=== PATIENT | female | born 1980 | race American Indian/Alaskan Native ===

== ENCOUNTER 2017-07-24 20:09 | Outpatient (CLI) | payer OTHER ==
[2017-07-24] MEDS ORDERED: LACTATED RINGERS 500 ML IV ONE (21:49)
[2017-07-24 22:25] LABS: Basophils % (Auto) 0.3 % (0.0-1.8); Eosinophils % (Auto) 1.1 % (0.0-4.3); Hematocrit 26.8 % (30.3-42.9); Hemoglobin 8.3 gm/dl (10.1-14.3); Mean Corpuscular HGB Conc 31 % (30-34); Platelet Count 271 K/mm3 (140-440); Red Blood Count 4.73 M/mm3 (3.65-5.03); Red Cell Distribution Width 19.1 % (13.2-15.2); White Blood Count 7.7 K/mm3 (4.5-11.0)
[2017-07-24 22:29] LABS: Alanine Aminotransferase 14 units/L (7-56); Albumin 3.2 g/dL (3.9-5); Albumin/Globulin Ratio 0.9 %; Alkaline Phosphatase 110 units/L (35-129); Anion Gap 18 mmol/L; BUN/Creatinine Ratio 6; Blood Urea Nitrogen 3 mg/dL (7-17); Calcium 8.9 mg/dL (8.4-10.2); Carbon Dioxide 22 mmol/L (22-30); Chloride 98.4 mmol/L (98-107); Glucose 95 mg/dL (65-100); Potassium 3.9 mmol/L (3.6-5.0); Sodium 134 mmol/L (137-145); Total Protein 6.6 g/dL (6.3-8.2)
[2017-07-24 22:31] LABS: Bacteria,Urine 4+ /HPF (Negative); Bilirubin,Urine NEG (Negative); Blood,Urine NEG (Negative); Ketones,Urine NEG (Negative); Leukocyte Esterase,Urine NEG (Negative); Mucus,Urine FEW /HPF; Nitrite,Urine NEG (Negative); Protein,Urine <15 mg/dL mg/dL (Negative); Urobilinogen,Urine < 2.0 mg/dL (<2.0)
[2017-07-24 22:32] LABS: Mean Corpuscular Hemoglobin 18 pg (28-32); Mean Corpuscular Volume 57 fl (79-97)
[2017-07-24 23:42] VITALS: BP 147/89
== END 2017-07-25 00:04 | disposition swing bed (61) ==
LOC: TRG 20:09
PROVIDERS: ATTEND Obstetrics & Gynecology
DX: O26.893 Other specified pregnancy related conditions, third trimester (principal); R94.31 Abnormal electrocardiogram [ECG] [EKG]; O47.03 False labor before 37 completed weeks of gestation, third trimester; Z3A.30 30 weeks gestation of pregnancy
CPT/HCPCS: 36415; 59025; 80053; 81001; 85025; 93005; 93010; J7120

== ENCOUNTER 2017-07-25 00:08 | Emergency (ER) | payer OTHER ==
[2017-07-25 02:43] LABS: Basophils % (Auto) 0.3 % (0.0-1.8); Eosinophils % (Auto) 1.2 % (0.0-4.3); Hematocrit 26.9 % (30.3-42.9); Hemoglobin 8.4 gm/dl (10.1-14.3); Mean Corpuscular HGB Conc 31 % (30-34); Platelet Count 244 K/mm3 (140-440); Red Blood Count 4.68 M/mm3 (3.65-5.03); Red Cell Distribution Width 18.8 % (13.2-15.2); White Blood Count 8.4 K/mm3 (4.5-11.0)
[2017-07-25 02:45] LABS: Mean Corpuscular Hemoglobin 18 pg (28-32); Mean Corpuscular Volume 58 fl (79-97)
[2017-07-25 02:56] LABS: Anion Gap 18 mmol/L; BUN/Creatinine Ratio 6; Blood Urea Nitrogen 3 mg/dL (7-17); Calcium 8.9 mg/dL (8.4-10.2); Carbon Dioxide 22 mmol/L (22-30); Chloride 97.5 mmol/L (98-107); Glucose 110 mg/dL (65-100); Potassium 3.7 mmol/L (3.6-5.0); Sodium 134 mmol/L (137-145)
[2017-07-25 03:58] VITALS: BP 191/103
[2017-07-25] MEDS ORDERED: NACL 0.9% 1000 ML 1,000 ML IV ONE (04:03)
[2017-07-25] MEDS ORDERED: APRESOLINE IV ONE (04:03)
[2017-07-25 06:32] LABS: Alanine Aminotransferase 13 units/L (7-56); Albumin 3.2 g/dL (3.9-5); Alkaline Phosphatase 107 units/L (35-129); Total Protein 6.5 g/dL (6.3-8.2)
[2017-07-25 06:49] LABS: Bilirubin,Direct < 0.2 mg/dL (0-0.2); Bilirubin,Indirect 0.3 mg/dL
== END 2017-07-25 04:15 | disposition left against medical advice (07) ==
LOC: ED 00:08
DX: R07.9 Chest pain, unspecified (principal); Z53.21 Procedure and treatment not carried out due to patient leaving prior to being seen by health care provider
CPT/HCPCS: 36415; 80048; 80074; 84484; 85025

== ENCOUNTER 2017-08-08 17:33 | Outpatient (CLI) | payer OTHER ==
[2017-08-08] MEDS ORDERED: LACTATED RINGERS 500 ML IV ONE (19:14)
[2017-08-08 19:30] LABS: Bacteria,Urine 1+ /HPF (Negative); Bilirubin,Urine NEG (Negative); Blood,Urine NEG (Negative); Ketones,Urine TR mg/dL (Negative); Leukocyte Esterase,Urine SM (Negative); Mucus,Urine FEW /HPF; Nitrite,Urine NEG (Negative)
[2017-08-08 20:52] VITALS: BP 136/89
== END 2017-08-08 22:52 | disposition home or self-care (01) ==
LOC: TRG 17:33
PROVIDERS: ATTEND Obstetrics & Gynecology Gynecology
DX: O47.03 False labor before 37 completed weeks of gestation, third trimester (principal); Z3A.32 32 weeks gestation of pregnancy
CPT/HCPCS: 59025; 81001

== ENCOUNTER 2018-09-22 13:19 | Inpatient (IN) | payer OTHER ==
[2018-09-22] MEDS ORDERED: LACTATED RINGERS 500 ML IV ONE (13:38)
[2018-09-22 14:39] LABS: Bacteria,Urine 1+ /HPF (Negative); Bilirubin,Urine NEG (Negative); Blood,Urine NEG (Negative); Color,Urine Yellow (Yellow)
[2018-09-22 14:54] LABS: Hematocrit 27.7 % (30.3-42.9); Hemoglobin 8.8 gm/dl (10.1-14.3); Mean Corpuscular HGB Conc 32 % (30-34); Platelet Count 222 K/mm3 (140-440); Red Blood Count 4.85 M/mm3 (3.65-5.03); Red Cell Distribution Width 19.8 % (13.2-15.2)
[2018-09-22 15:17] LABS: Alanine Aminotransferase 10 units/L (7-56); Uric Acid 5.1 mg/dL (3.5-7.6)
[2018-09-22 15:21] LABS: Mean Corpuscular Volume 57 fl (79-97)
--- NOTE | 2018-09-22 19:15 | History and Physical Report ---
History of Present Illness Date of examination: 09/22/18 Chief complaint: Elevated BP's History of present illness: Pt is a 38yo BF EDC 11/07/18; EGA 33 3/7 weeks sent to [facility] for evaluation of elevated BP's - 178/120. This was her 1st visit at [facility]. She has Chronic hypertension, but has been non-compliant with her visits and her BP meds which are Procardia 30mg BID and Labetolol 100mg BID. records are available. Past History Past Medical History: hypertension Social history: no significant social history, - Obstetrical History Expected Date of Delivery: 11/07/18 Actual Gestation: 33 Week(s) 4 Day(s) : 9 (Per patient) Medications and Allergies Allergies Allergy/AdvReac Type Severity Reaction Status Date / Time No Known Allergies Allergy Verified 09/22/18 13:33 Home Medications Medication Instructions Recorded Confirmed Last Taken Type NIFEdipine XL [Procardia Xl] 60 mg PO BID 08/27/17 08/27/17 08/26/17 10:00 History 60 MG HYDROcodone/APAP 5-325 [Lena 1 each PO Q6HR PRN #7 tablet 09/01/17 Unknown Rx 5/325] Ibuprofen [Motrin 600 MG tab] 600 mg PO Q8H PRN #30 tablet 09/01/17 Unknown Rx Multivitamin with Iron 1 each PO DAILY #30 tablet 09/01/17 Unknown Rx [Multivitamins with Iron] Review of Systems All systems: negative - Vital Signs Vital signs: Vital Signs Pulse BP 127 H 134/87 09/22/18 14:03 09/22/18 14:03 Temp Pulse Resp BP Pulse Ox 99.4 F 100 H 20 141/100 09/22/18 14:07 09/22/18 17:42 09/22/18 14:07 09/22/18 17:42 - Physical Exam Cardiovascular: Regular rate Lungs: Positive: Clear to auscultation Abdomen: Positive: normal appearance Genitourinary (Female): Positive: normal external genitalia Uterus: Positive: enlarged Extremities: Positive: normal - Obstetrical FHR: category 1 Uterine Contraction Monitor Mode: External Uterine Contraction Pattern: Absent Results Result Diagrams: 09/22/18 14:35 09/22/18 14:35 Abnormal lab results 09/22/18 09/22/18 Range/Units 14:35 14:35 Hgb 8.8 L (10.1-14.3) gm/dl Hct 27.7 L (30.3-42.9) % MCV 57 L (79-97) fl MCH 18 L (28-32) pg RDW 19.8 H (13.2-15.2) % Creatinine 0.6 L (0.7-1.2) mg/dL Lactate Dehydrogenase 250 H (91-180) units/L All other labs normal. Ultrasound: report reviewed (BPP 8/; DAO 18.6) Assessment and Plan - Patient Problems (1) 33 weeks gestation of Onset Date: 09/22/18 Current Visit: Yes Status: Acute Plan to address problem: A: IUP @ 33 3/7 weeks Chronic hypertension - uncontrolled Non-compliant Grandmultiparous P: Admit to L&D for Observation Obtain PIH labs, 24hr urine for protein Monitor BP's with IV Hydralazine as needed APA consultation (2) AMA (advanced maternal age) multigravida 35+ Onset Date: 08/28/17 Current Visit: No Status: Acute Qualifiers: Trimester: third trimester Qualified Code(s): O09.523 - Supervision of elderly multigravida, third trimester (3) Grand multipara Onset Date: 09/22/18 Current Visit: No Status: Acute (4) Hypertension affecting in third trimester Onset Date: 08/28/17 Current Visit: No Status: Acute
[2018-09-22] MEDS ORDERED: APRESOLINE IV PRN (19:18)
[2018-09-22] MEDS ORDERED: TYLENOL PO PRN (19:18)
[2018-09-22] MEDS ORDERED: ZOFRAN IV PRN (19:18)
[2018-09-22] MEDS ORDERED: COLACE PO PRN (19:18)
--- NOTE | 2018-09-22 19:51 | Ultrasound Report ---
FINAL REPORT PROCEDURE: US OB LIMITED TECHNIQUE: Real-time limited sonographic examination was performed for evaluation of size, pos ition, heartbeat, fluid volume for each fetus with image documentation (1 or more fetuses). CPT 7681 5 HISTORY: Check amparo COMPARISON: No prior studies are available for comparison. FINDINGS: FETUS IUP: Single living intrauterine . Position: Cephalic. Amniotic fluid volume: Amniotic fluid index measures 18.6 centimeters Heart rate and rhythm: 140 BPM, Regular . IMPRESSION: Amniotic fluid index measures 18.6 centimeters
--- NOTE | 2018-09-22 19:53 | Ultrasound Report ---
FINAL REPORT PROCEDURE: US OB BPP WO NON-STRESS TECHNIQUE: Sonographic evaluation for breathing, movement, tone, and amniotic flui d volume was performed. CPT 87960 HISTORY: bpp COMPARISON: No prior studies are available for comparison. FINDINGS: Amniotic fluid volume: Normal-score 2. At least one vertical pocket >2 cm or more in vertical axis . breathing: Normal-score 2. movement: Normal-score 2. tone: Normal. Score: 8 of 8. IMPRESSION: Normal biophysical profile score.
[2018-09-22] MEDS ORDERED: LACTATED RINGERS 1,000 ML IV SCH (20:00)
[2018-09-22] MEDS: DECADRON IM SCH (21:25)
[2018-09-22] MEDS: NORMODYNE PO SCH (21:26)
[2018-09-22] MEDS: PROCARDIA XL PO SCH (22:00)
[2018-09-23] MEDS: NORMODYNE PO SCH ×2 (09:48→21:54)
[2018-09-23] MEDS: PRENATAL VITAMIN PO SCH (09:49)
[2018-09-23] MEDS: PROCARDIA XL PO SCH ×2 (09:49→21:55)
[2018-09-23] MEDS: DECADRON IM SCH ×2 (09:49→21:54)
[2018-09-23] MEDS: PEPCID PO SCH ×2 (10:03→21:55)
--- NOTE | 2018-09-23 12:55 | Progress Note ---
Assessment and Plan - Patient Problems (1) 33 weeks gestation of Onset Date: 09/22/18 Current Visit: Yes Status: Acute Plan to address problem: A: IUP @ 33 4/7 weeks Chronic hypertension - uncontrolled Non-compliant Grandmultiparous P: Continue present management for Observation Awaiting 24hr urine for protein - pending Monitor BP's with IV Hydralazine as needed Awaiting APA consultation (2) AMA (advanced maternal age) multigravida 35+ Onset Date: 08/28/17 Current Visit: No Status: Acute Qualifiers: Trimester: third trimester Qualified Code(s): O09.523 - Supervision of elderly multigravida, third trimester (3) Grand multipara Onset Date: 09/22/18 Current Visit: No Status: Acute (4) Hypertension affecting in third trimester Onset Date: 08/28/17 Current Visit: No Status: Acute Subjective - Subjective Date of service: 09/23/18 Principal diagnosis: IUP @ 33 4/7 weeks; Chronic hypertension Interval history: Pt is a 38yo BF EDC 11/07/18; EGA 33 4/7 weeks sent to [facility] for evaluation of elevated BP's - 178/120. This was her 1st visit at [facility]. She has Chronic hypertension, but has been non-compliant with her visits and her BP meds which are Procardia 30mg BID and Labetolol 100mg BID. records are available. Today she is feeling well without complaints. She denies headaches or blurred vision. Patient reports: movement normal, no new complaints, no loss of fluid, no vaginal bleeding, no contractions Objective - Vital Signs Vital Signs: Vital Signs - 12hr 09/23/18 09/23/18 09/23/18 01:44 07:07 07:11 Pulse Rate 100 H 104 H 103 H Blood Pressure 143/74 164/88 149/86 09/23/18 09/23/18 09/23/18 09:45 10:23 10:39 Pulse Rate 133 H 109 H 109 H Blood Pressure 124/64 135/72 163/95 09/23/18 09/23/18 09/23/18 10:53 11:08 11:23 Pulse Rate 101 H 100 H 101 H Blood Pressure 152/89 152/89 140/70 09/23/18 09/23/18 09/23/18 11:38 11:53 12:08 Pulse Rate 101 H 107 H 100 H Blood Pressure 139/67 143/70 154/92 09/23/18 09/23/18 12:24 12:38 Pulse Rate 103 H 103 H Blood Pressure 124/64 130/68 - Exam Abdomen: Present: normal appearance, soft Uterus: Present: normal FHR: category 1 Uterine Contraction Monitor Mode: External Uterine Contraction Pattern: Absent - Labs Labs: Abnormal Labs 09/22/18 09/22/18 14:35 14:35 Hgb 8.8 L Hct 27.7 L MCV 57 L MCH 18 L RDW 19.8 H Creatinine 0.6 L Lactate Dehydrogenase 250 H Laboratory Results - last 24 hr 09/22/18 09/22/18 09/22/18 14:15 14:35 14:35 WBC 6.7 RBC 4.85 Hgb 8.8 L Hct 27.7 L MCV 57 L MCH 18 L MCHC 32 RDW 19.8 H Plt Count 222 Creatinine 0.6 L Estimated GFR > 60 Uric Acid 5.1 AST 17 ALT 10 Lactate Dehydrogenase 250 H Urine Color Yellow Urine Turbidity Clear Urine pH 6.0 Ur Specific [place] 1.012 Urine Protein 100 mg/dl Urine Glucose (UA) Neg Urine Ketones Tr Urine Blood Neg Urine Nitrite Neg Urine Bilirubin Neg Urine Urobilinogen 2.0 Ur Leukocyte Esterase Neg Urine WBC (Auto) 2.0 Urine RBC (Auto) 1.0 U Epithel Cells (Auto) 2.0 Urine Bacteria (Auto) 1+
--- NOTE | 2018-09-23 14:10 | Consultation ---
History of Present Illness Consult date: 09/23/18 Requesting physician: JULIETA BEATTY Reason for consult: gestational hypertension History of present illness: Thank you for your referral of this patient. As you are aware, she is a 38 year old para [id number] with a history of chronic hypertension who presented to [facility] with elevated blood pressure. Patient has been noncompliant with blood pressure medication. Her BP at the time of admission was 178/120. MEDICAITONS PRIOR TO ADMISSION: Procardia 30mg BID Labetolol 100mg BID. She denies headaches or blurred vision. PAST OB HISTORY: x 6 (SEE REPORT IN PATIENTS CHART) At the time of admission this patient had mild headache at which time she ind icates have decreased. PIH Labs WNL Current blood pressure: 128/74 [facility] Ultrasonography See reports in patients chart Available Admission Labs: 24 Hour Urine at Pending. No serological evidence of HELLP Past History Past Medical History: hypertension - Obstetrical History : 9 (Per patient) Medications and Allergies Allergies Allergy/AdvReac Type Severity Reaction Status Date / Time No Known Allergies Allergy Verified 09/22/18 13:33 Home Medications Medication Instructions Recorded Confirmed Last Taken Type NIFEdipine XL [Procardia Xl] 60 mg PO BID 08/27/17 08/27/17 08/26/17 10:00 History 60 MG HYDROcodone/APAP 5-325 [Artie 1 each PO Q6HR PRN #7 tablet 09/01/17 Unknown Rx 5/325] Ibuprofen [Motrin 600 MG tab] 600 mg PO Q8H PRN #30 tablet 09/01/17 Unknown Rx Multivitamin with Iron 1 each PO DAILY #30 tablet 09/01/17 Unknown Rx [Multivitamins with Iron] Active Meds: Active Medications Acetaminophen (Tylenol) 650 mg PO Q4H PRN PRN Reason: Pain MILD(1-3)/Fever >100.5/GONZALES Dexamethasone (Decadron) 6 mg IM Q12HR [facility] Stop: 09/24/18 10:01 Last Admin: 09/23/18 09:49 Dose: 6 mg Documented by: Docusate Sodium (Colace) 100 mg PO Q12H PRN PRN Reason: Constipation Famotidine (Pepcid) 20 mg PO BID [facility] Last Admin: 09/23/18 10:03 Dose: 20 mg Documented by: Hydralazine HCl (Apresoline) 10 mg IV Q30MIN PRN PRN Reason: Blood Pressure Lactated Ringer's (Lactated Ringers) 1,000 mls @ 125 mls/hr IV DIRECT [facility] Labetalol HCl (Normodyne) 200 mg PO BID [facility] Last Admin: 09/23/18 09:48 Dose: 200 mg Documented by: Multivitamins/Iron/Calcium ( Vitamin) 1 each PO QDAY [facility] Last Admin: 09/23/18 09:49 Dose: 1 each Documented by: Nifedipine (Procardia Xl) 30 mg PO Q12HR [facility] Last Admin: 09/23/18 09:49 Dose: 30 mg Documented by: Ondansetron HCl (Zofran) 4 mg IV Q6H PRN PRN Reason: Nausea And Vomiting - Vital Signs Vital signs: Vital Signs Pulse BP 127 H 134/87 09/22/18 14:03 09/22/18 14:03 Temp Pulse Resp BP Pulse Ox 98.6 F 105 H 20 130/64 09/22/18 21:01 09/23/18 13:08 09/22/18 14:07 09/23/18 13:08 Results Result Diagrams: 09/22/18 14:35 09/22/18 14:35 Abnormal lab results 09/22/18 09/22/18 Range/Units 14:35 14:35 Hgb 8.8 L (10.1-14.3) gm/dl Hct 27.7 L (30.3-42.9) % MCV 57 L (79-97) fl MCH 18 L (28-32) pg RDW 19.8 H (13.2-15.2) % Creatinine 0.6 L (0.7-1.2) mg/dL Lactate Dehydrogenase 250 H (91-180) units/L All other labs normal. Assessment and Plan ASSESSMENT Intrauterine at 32-33 weeks Admitted due to suspected elevated blood pressure; rule out superimposed preeclampsia. Blood pressure improved on current medication. Awaiting 24 hour urine. Stable and satisfactory candidate for discharge home RECOMMENDATIONS Labs and presentation do NOT appear to suggest objective evidence of superimposed preeclampsia or HELLP syndrome. We would recommend discharge home on current regimen of antihypertensive medications. During todays consultation I have had the opportunity to review the warning signs of preeclampsia with the patient. She has been instructed to return to the hospital immediately should she experience headache dizziness blurred vision chest discomfort or right upper quadrant pain. The patient is also been instructed with regard to kick counts and the threshold for return to the hospital in this regard. If stable following hospitalization we would recommend a follow-up visit with APA in one week. Thank you for allowing us to participate in the care of this patient. We look forward to the opportunity to assist in her continued management. If you have a ny questions, please contact our office at [phone]. Radha Oshea M.D.
[2018-09-23] MEDS ORDERED: AMBIEN PO PRN (22:16)
--- NOTE | 2018-09-24 10:06 | Progress Note ---
Assessment and Plan - Patient Problems (1) 33 weeks gestation of Onset Date: 09/22/18 Current Visit: Yes Status: Acute Plan to address problem: A: IUP @ 33 5/7 weeks Chronic hypertension - controlled with Labetolol 200mg BID and Procardia XL 30mg BID Non-compliant Grandmultiparous P: May go home today. Appreciate APA consultation (2) AMA (advanced maternal age) multigravida 35+ Onset Date: 08/28/17 Current Visit: No Status: Chronic Qualifiers: Trimester: third trimester Qualified Code(s): O09.523 - Supervision of elderly multigravida, third trimester (3) Grand multipara Onset Date: 09/22/18 Current Visit: No Status: Chronic (4) Hypertension affecting in third trimester Onset Date: 08/28/17 Current Visit: No Status: Chronic Subjective - Subjective Date of service: 09/24/18 Principal diagnosis: IUP @ 33 5/7 weeks; Chronic hypertension Interval history: Pt is a 38yo BF EDC 11/07/18; EGA 33 5/7 weeks sent to [facility] for evaluation of elevated BP's - 178/120. This was her 1st visit at [facility]. She has Chronic hypertension, but has been non-compliant with her visits and her BP meds which are Procardia 30mg BID and Labetolol 100mg BID. records are available. She received steroids and BP meds and BP is now 122/67. Today she is feeling well without complaints. She denies headaches or blurred vision. Patient reports: movement normal, no new complaints, no loss of fluid, no vaginal bleeding, no contractions Objective - Vital Signs Vital Signs: Vital Signs - 12hr 09/23/18 09/23/18 09/23/18 22:08 22:23 22:38 Temperature Pulse Rate 108 H 113 H 108 H Respiratory Rate Blood Pressure 133/68 135/71 139/75 Blood Pressure [Right] 09/23/18 09/23/18 09/23/18 22:53 23:08 23:23 Temperature Pulse Rate 106 H 107 H 112 H Respiratory Rate Blood Pressure 117/65 117/63 120/62 Blood Pressure [Right] 09/23/18 09/23/18 09/24/18 23:38 23:53 00:08 Temperature Pulse Rate 103 H 106 H 106 H Respiratory Rate Blood Pressure 111/59 118/57 111/59 Blood Pressure [Right] 09/24/18 09/24/18 09/24/18 00:23 00:38 00:53 Temperature Pulse Rate 105 H 104 H 114 H Respiratory Rate Blood Pressure 114/59 114/56 128/77 Blood Pressure [Right] 09/24/18 09/24/18 09/24/18 05:06 05:10 08:31 Temperature 97.4 F L 99.1 F Pulse Rate 109 H 113 H Respiratory 20 18 Rate Blood Pressure 126/66 122/67 Blood Pressure 122/67 [Right] - Exam Uterus: Present: normal FHR: category 1 Uterine Contraction Monitor Mode: External Uterine Contraction Pattern: Absent - Labs Labs: Abnormal Labs 09/22/18 09/22/18 09/23/18 14:35 14:35 20:20 Hgb 8.8 L Hct 27.7 L MCV 57 L MCH 18 L RDW 19.8 H Creatinine 0.6 L Lactate Dehydrogenase 250 H Ur Total Protein 24 Hr 798.00 H Urine Total Protein 42 H Laboratory Results - last 24 hr 09/23/18 20:20 Urine Total Volume 1900 Ur Total Protein 24 Hr 798.00 H Urine Total Protein 42 H
--- NOTE | 2018-09-24 10:10 | Discharge Summary ---
Providers - Providers Date of Admission: 09/22/18 20:39 Date of discharge: 09/24/18 Attending physician: JULIETA BEATTY 09/22/18 19:18 Consult to Physician [CONS] Routine Comment: Consulting Provider: ALICIA SMITH Physician Instructions: Reason For Exam: IUP @ 33 week; Hypertension Primary care physician: JULIETA BEATTY Hospitalization Reason for admission: IUP - , observation, other (IUP @ 33 3/7 weeks; Chronic hypertension - uncontrolled; Non-compliant) Other procedures: none complications: none Discharge diagnosis: other (IUP @ 33 5/7 weeks; Chronic hypertension - controlled) Hospital course: Pt is a 38yo BF EDC 11/07/18; EGA 33 5/7 weeks sent to [facility] for evaluation of elevated BP's - 178/120. This was her 1st visit at [facility]. She has Chronic hypertension, but has been non-compliant with her visits and her BP meds which are Procardia 30mg BID and Labetolol 100mg BID. records are available. She received steroids and BP meds and BP is now 122/67 on Labetolol 200mg BID and Procardia XL 30mg BID. Today she is feeling well without complaints. She denies headaches or blurred vision. She will follow up in the office next week for visit and BP check and with [facility] for co-management. Condition at discharge: Good Disposition: DC-01 TO HOME OR SELFCARE - Discharge Diagnoses (1) 33 weeks gestation of Status: Chronic (2) AMA (advanced maternal age) multigravida 35+ Status: Chronic Qualifiers: Trimester: third trimester Qualified Code(s): O09.523 - Supervision of elderly multigravida, third trimester (3) Grand multipara Status: Chronic (4) Hypertension affecting in third trimester Status: Chronic Plan - Discharge Medications Prescriptions: Labetalol [Normodyne TAB] 200 mg PO BID #60 tablet NIFEdipine XL [Procardia Xl] 30 mg PO Q12HR #60 tablet - Provider Discharge Summary Activity: routine, no sex for 6 weeks, no heavy lifting 4 weeks, no strenuous exercise Diet: routine Instructions: routine Additional instructions: [] Smoking cessation referral if applicable(refer to patient education folder for contact #) [] Refer to [facility] Booklet Call your doctor immediately for: * Fever > 100.5 * Heavy vaginal bleeding ( >1 pad per hour) * Severe persistent headache * Shortness of breath * Reddened, hot, painful area to leg or breast * Drainage or odor from incision. * Keep incision clean and dry at all times and follow doctor's instructions regarding bathing/showering Follow up in office next week - Follow up plan Follow up: JULIETA BEATTY MD [Primary Care Provider] - 7 Days YIN JOYCE MD [Staff Physician] - 7 Days
[2018-09-24] MEDS: PEPCID PO SCH (11:01)
[2018-09-24] MEDS: NORMODYNE PO SCH (11:01)
[2018-09-24] MEDS: PROCARDIA XL PO SCH (11:02)
[2018-09-24] MEDS: PRENATAL VITAMIN PO SCH (11:02)
[2018-09-24] MEDS: DECADRON IM SCH (11:03)
[2018-09-26 11:23] VITALS: BP 122/67
== END 2018-09-24 12:10 | disposition home or self-care (01) | DRG 833 ==
LOC: TRG 13:19 → LD 20:39
PROVIDERS: ADMIT Obstetrics & Gynecology; ATTEND Obstetrics & Gynecology
DX: O10.913 Unspecified pre-existing hypertension complicating pregnancy, third trimester (principal); Z3A.33 33 weeks gestation of pregnancy; O09.523 Supervision of elderly multigravida, third trimester; Z64.1 Problems related to multiparity; Z91.14 Patient's other noncompliance with medication regimen; Z79.899 Other long term (current) drug therapy
CPT/HCPCS: 36415; 76815; 76819; 81001; 82565; 83615; 84156; 84450; 84460; 84550; 85027; G0378; J1100; J7120

== ENCOUNTER 2018-09-27 23:15 | Outpatient (CLI) | payer OTHER ==
[2018-09-27] MEDS ORDERED: LACTATED RINGERS 500 ML IV ONE (23:29)
[2018-09-28 01:13] LABS: Bilirubin,Urine NEG (Negative); Blood,Urine NEG (Negative); Color,Urine Yellow (Yellow); Protein,Urine <15 mg/dL mg/dL (Negative); Urobilinogen,Urine < 2.0 mg/dL (<2.0); WBC,Urine < 1.0 /HPF (0.0-6.0)
[2018-09-28] MEDS ORDERED: TYLENOL PO ONE (02:01)
[2018-09-28] MEDS ORDERED: NORMODYNE PO ONE (02:02)
[2018-09-28 04:20] VITALS: BP 138/78
== END 2018-09-28 04:52 | disposition home or self-care (01) ==
LOC: TRG 23:15
PROVIDERS: ATTEND Obstetrics & Gynecology
DX: O26.893 Other specified pregnancy related conditions, third trimester (principal); O10.013 Pre-existing essential hypertension complicating pregnancy, third trimester; R10.30 Lower abdominal pain, unspecified; M54.9 Dorsalgia, unspecified; Z90.49 Acquired absence of other specified parts of digestive tract; Z3A.34 34 weeks gestation of pregnancy; W19.XXXA Unspecified fall, initial encounter; Y93.89 Activity, other specified; Y92.89 Other specified places as the place of occurrence of the external cause; Y99.8 Other external cause status
CPT/HCPCS: 59025; 81001

== ENCOUNTER 2018-10-04 13:29 | Outpatient (CLI) | payer SELFPAY ==
[2018-10-04 15:08] LABS: Bacteria,Urine 1+ /HPF (Negative); Bilirubin,Urine NEG (Negative); Blood,Urine NEG (Negative); Color,Urine Amber (Yellow); Mucus,Urine FEW /HPF; Urobilinogen,Urine < 2.0 mg/dL (<2.0)
[2018-10-04 15:25] LABS: Hematocrit 28.2 % (30.3-42.9); Hemoglobin 8.7 gm/dl (10.1-14.3); Mean Corpuscular HGB Conc 31 % (30-34); Platelet Count 187 K/mm3 (140-440); Red Blood Count 4.84 M/mm3 (3.65-5.03); Red Cell Distribution Width 19.9 % (13.2-15.2)
[2018-10-04 15:26] LABS: Mean Corpuscular Volume 58 fl (79-97)
[2018-10-04] MEDS ORDERED: LACTATED RINGERS 500 ML IV ONE (15:38)
[2018-10-04 15:42] LABS: Alanine Aminotransferase 8 units/L (7-56); Uric Acid 5.6 mg/dL (3.5-7.6)
[2018-10-04] MEDS ORDERED: TYLENOL PO ONE (17:56)
[2018-10-04] MEDS ORDERED: APRESOLINE IV ONE (18:00)
[2018-10-04 20:06] VITALS: BP 163/89
[2018-10-04] MEDS ORDERED: PERCOCET 5/325 PO ONE (20:19)
== END 2018-10-04 20:52 | disposition home or self-care (01) ==
LOC: TRG 13:29
PROVIDERS: ATTEND Obstetrics & Gynecology
DX: O47.03 False labor before 37 completed weeks of gestation, third trimester (principal); O16.3 Unspecified maternal hypertension, third trimester; Z3A.35 35 weeks gestation of pregnancy
CPT/HCPCS: 36415; 59025; 81001; 82565; 83615; 84450; 84460; 84550; 85027; 96365; J0360; 96374

== ENCOUNTER 2018-10-10 10:44 | Inpatient (IN) | payer MEDICAID, OTHER ==
[2018-10-10] MEDS ORDERED: APRESOLINE IV ONE ×2 (12:00→14:00)
[2018-10-10] MEDS ORDERED: ZOFRAN IV PRN (13:21)
[2018-10-10] MEDS ORDERED: STADOL IV PRN (13:21)
[2018-10-10] MEDS ORDERED: PHENERGAN PO PRN (13:21)
[2018-10-10] MEDS ORDERED: MINERAL OIL PO PRN (13:21)
[2018-10-10] MEDS ORDERED: BRETHINE SUB-Q PRN (13:21)
[2018-10-10] MEDS ORDERED: BRETHINE IVP PRN (13:21)
[2018-10-10] MEDS ORDERED: SUBLIMAZE IV PRN (13:21)
--- NOTE | 2018-10-10 13:21 | History and Physical Report ---
History of Present Illness Date of examination: 10/10/18 Chief complaint: Elevated BP's History of present illness: Pt is a 38yo BF EDC 11/07/18; EGA 36 0/7 weeks was seen here at [facility] for evaluation of elevated BP's - 178/120 on 09/22/18. She has had limited care at [facility]. She has Chronic hypertension, but has been non-compliant with her visits and her BP meds which are Procardia 30mg BID and Labetolol 200mg BID. records are available. Past History Past Medical History: hypertension (On Labetolol 200mg BID and Procardia 30mg BID) Family/Genetic History: none Social history: no significant social history, - Obstetrical History Expected Date of Delivery: 11/07/18 Actual Gestation: 36 Week(s) 0 Day(s) : 8 Medications and Allergies Allergies Allergy/AdvReac Type Severity Reaction Status Date / Time No Known Allergies Allergy Verified 10/10/18 11:45 Home Medications Medication Instructions Recorded Confirmed Last Taken Type Multivitamin with Iron 1 each PO DAILY #30 tablet 09/01/17 10/10/18 09/24/18 Rx [Multivitamins with Iron] Labetalol [Normodyne TAB] 200 mg PO BID #60 tablet 09/24/18 10/10/18 10/10/18 07:00 Rx 1 Methyldopa 250 mg PO BID 10/10/18 10/10/18 10/10/18 07:00 History Active Meds: Active Medications Hydralazine HCl (Apresoline) 10 mg IV ONCE ONE Stop: 10/10/18 14:01 Review of Systems All systems: negative - Vital Signs Vital signs: Vital Signs Pulse BP 93 H 186/111 10/10/18 11:42 10/10/18 11:42 Temp Pulse Resp BP Pulse Ox 98.6 F 100 H 20 172/104 10/10/18 12:15 10/10/18 12:59 10/10/18 12:15 10/10/18 12:59 - Physical Exam Breasts: Positive: deferred Cardiovascular: Regular rate Lungs: Positive: Clear to auscultation Abdomen: Positive: normal appearance Genitourinary (Female): Positive: normal external genitalia Vagina: Positive: normal moisture Extremities: Positive: normal - Obstetrical FHR: category 1 Uterine Contraction Monitor Mode: External Cervical Dilatation: 2 Cervical Effacement Percentage: 70 station: -2 Uterine Contraction Pattern: Regular Uterine Tone Measurement Phase: Contraction Uterine Contraction Intensity: Mild Results Result Diagrams: 10/10/18 11:00 10/10/18 11:00 All other labs normal. Assessment and Plan - Patient Problems (1) 36 weeks gestation of Onset Date: 10/10/18 Current Visit: Yes Status: Acute Plan to address problem: A: IUP @ 36 0/7 weeks Chronic hypertension with Superimposed Preeclampsia Morbid Obesity AMA Grandmultiparous P: Admit to L&D for pitocin induction of labor IV Hydralazine IV Magnesium sulfate (2) Pre-eclampsia added to pre-existing hypertension Onset Date: 10/10/18 Current Visit: No Status: Acute (3) AMA (advanced maternal age) multigravida 35+ Onset Date: 10/10/18 Current Visit: No Status: Chronic Qualifiers: Trimester: third trimester Qualified Code(s): O09.523 - Supervision of elderly multigravida, third trimester (4) Grand multipara Onset Date: 09/22/18 Current Visit: No Status: Chronic (5) Maternal morbid obesity in third trimester, antepartum Onset Date: 10/10/18 Current Visit: No Status: Chronic
[2018-10-10 14:00] LABS: Hematocrit 28.6 % (30.3-42.9); Mean Corpuscular HGB Conc 31 % (30-34); Platelet Count 181 K/mm3 (140-440); Red Blood Count 4.91 M/mm3 (3.65-5.03)
[2018-10-10] MEDS ORDERED: AMPICILLIN/NS 2 GM/100 ML 2 GM/100 ML BAG IV ONE (14:00)
[2018-10-10] MEDS ORDERED: MAGNESIUM SULFATE 4GM/100ML 4 GM/100 ML BAG IV ONE (14:00)
[2018-10-10] MEDS ORDERED: MAGNESIUM SULFATE 40GM/1000ML 40 GM/1,000 ML BAG IV SCH (14:00)
[2018-10-10] MEDS ORDERED: XYLOCAINE 2% INFILTRATI ONE (14:00)
[2018-10-10] MEDS ORDERED: PITOCin/NS 30 UNIT/500ML 30 UNITS/500 ML BAG IV SCH ×2 (14:00)
[2018-10-10] MEDS ORDERED: PITOCin/NS 20 UNIT/1000ML DRIP 20 UNITS/1,000 ML BAG IV SCH (14:00)
[2018-10-10 14:06] LABS: Mean Corpuscular Volume 58 fl (79-97); Red Cell Distribution Width 20.5 % (13.2-15.2)
[2018-10-10 14:14] LABS: Bacteria,Urine 2+ /HPF (Negative); Bilirubin,Urine NEG (Negative); Blood,Urine NEG (Negative); Color,Urine Amber (Yellow); Mucus,Urine FEW /HPF
[2018-10-10] MEDS: LACTATED RINGERS 1,000 ML IV SCH (14:30)
[2018-10-10 14:46] LABS: Alanine Aminotransferase 10 units/L (7-56); Uric Acid 5.6 mg/dL (3.5-7.6)
[2018-10-10] MEDS ORDERED: TYLENOL PO ONE (15:00)
[2018-10-10] MEDS ORDERED: FIORICET PO PRN (18:21)
[2018-10-10] MEDS: APRESOLINE IV PRN ×2 (19:59→22:47)
[2018-10-10] MEDS: AMPICILLIN/NS 1 GM/50 ML 1 GM/50 ML BAG IV SCH (20:09)
--- NOTE | 2018-10-10 21:31 | Anesthesia Consultation ---
Anesthesia Consult and Med Hx Date of service: 10/10/18 - Airway Anesthetic Teeth Evaluation: Good ROM Head & Neck: Adequate Mental/Hyoid Distance: Adequate Mallampati Class: Class III Intubation Access Assessment: Possibly Difficult - Pre-Operative Health Status ASA Pre-Surgery Classification: ASA3 Proposed Anesthetic Plan: Epidural, Spinal - Pulmonary Hx Asthma: No COPD: No Hx Pneumonia: No - Cardiovascular System Hx Hypertension: Yes (2003, poorly controlled) - Central Nervous System Hx Seizures: No Hx Psychiatric Problems: No - Endocrine Hx Renal Disease: No Hx End Stage Renal Disease: No Hx Hypothyroidism: No Hx Hyperthyroidism: No - Hematic Hx Anemia: Yes Hx Sickle Cell Disease: No (trait) - Other Systems Hx Alcohol Use: No Hx Obesity: Yes (morbid, BMI 51)
[2018-10-10] MEDS ORDERED: NARCAN 2 MG/2 ML IV PRN (21:33)
[2018-10-10] MEDS ORDERED: ALDOMET PO SCH (22:00)
[2018-10-10] MEDS ORDERED: fentaNYL-BUPIV 2 MCG/ML-0.125% 200 MCG/100 ML BAG EPIDURAL SCH (22:00)
[2018-10-10] MEDS: NORMODYNE PO SCH (22:47)
[2018-10-10] MEDS: PROCARDIA XL PO SCH (22:47)
[2018-10-11] MEDS: AMPICILLIN/NS 1 GM/50 ML 1 GM/50 ML BAG IV SCH ×2 (00:38→04:15)
--- NOTE | 2018-10-11 06:25 | Procedure Note ---
OB Delivery Note - Delivery Date of Delivery: 10/11/18 Surgeon: JULIETA BEATTY Estimated blood loss: 100cc - Vaginal Delivery presentation: vertex Delivery position: OA Intrapartum events: labor-<37 weeks, PROM->1hr before delivery Delivery induction: oxytocin Delivery augmentation: rupture of membranes, pitocin Delivery monitor: external FHT, external uterine Route of delivery: Delivery placenta: spontaneous Delivery cord: 3 umbilical vessels Episiotomy: none Delivery laceration: none Anesthesia: epidural Delivery comments: delivered OA and placed on Mom's chest for [id number] bonding and delayed cord clamping - A at 1 minute: 7 at 5 minutes: 9 Infant Gender: Male (3205gms)
[2018-10-11] MEDS ORDERED: MILK OF MAGNESIA PO PRN (06:27)
[2018-10-11] MEDS ORDERED: DULCOLAX PR PRN (06:27)
[2018-10-11] MEDS ORDERED: PHENERGAN PO PRN (06:27)
[2018-10-11] MEDS ORDERED: TYLENOL PO PRN (06:27)
[2018-10-11] MEDS ORDERED: ZOFRAN IV PRN (06:27)
[2018-10-11] MEDS ORDERED: BENADRYL PO PRN (06:27)
[2018-10-11] MEDS ORDERED: NORCO 5/325 PO PRN (06:27)
[2018-10-11] MEDS ORDERED: TUCKS PAD TP PRN (06:27)
[2018-10-11] MEDS ORDERED: PHENERGAN PR PRN (06:27)
[2018-10-11] MEDS ORDERED: LANSINOH TP PRN (06:27)
[2018-10-11] MEDS ORDERED: SODIUM CHLORIDE FLUSH SYRINGE 10 ML IV PRN (07:00)
[2018-10-11] MEDS ORDERED: PITOCin/NS 20 UNIT/1000ML DRIP 20 UNITS/1,000 ML BAG IV SCH (07:00)
[2018-10-11] MEDS: COLACE PO SCH (09:46)
[2018-10-11] MEDS: PRENATAL VITAMIN PO SCH (09:47)
[2018-10-11] MEDS: NORMODYNE PO SCH ×2 (09:47→22:16)
[2018-10-11] MEDS: FEOSOL PO SCH (09:47)
[2018-10-11 20:24] LABS: Hematocrit 26.2 % (30.3-42.9); Hemoglobin 8.2 gm/dl (10.1-14.3)
[2018-10-12] MEDS: LACTATED RINGERS 1,000 ML IV SCH (00:43)
[2018-10-12] MEDS: IBUPROFEN PO SCH ×3 (00:50→16:50)
[2018-10-12] MEDS: COLACE PO SCH ×3 (00:52→21:42)
[2018-10-12] MEDS: FEOSOL PO SCH ×3 (00:52→21:42)
[2018-10-12] MEDS ORDERED: BOOSTRIX IM ONE (06:00)
[2018-10-12] MEDS ORDERED: M-M-R II VACCINE SUB-Q ONE (06:27)
[2018-10-12] MEDS: PRENATAL VITAMIN PO SCH (09:01)
[2018-10-12] MEDS: NORMODYNE PO SCH ×2 (09:01→21:43)
--- NOTE | 2018-10-12 10:33 | Progress Note ---
Assessment and Plan - Patient Problems (1) 36 weeks gestation of Onset Date: 10/10/18 Current Visit: Yes Status: Resolved (2) Pre-eclampsia added to pre-existing hypertension Onset Date: 10/10/18 Current Visit: No Status: Chronic (3) AMA (advanced maternal age) multigravida 35+ Onset Date: 10/10/18 Current Visit: No Status: Chronic Qualifiers: Trimester: third trimester Qualified Code(s): O09.523 - Supervision of elderly multigravida, third trimester (4) Grand multipara Onset Date: 09/22/18 Current Visit: No Status: Chronic (5) Maternal morbid obesity in third trimester, antepartum Onset Date: 10/10/18 Current Visit: No Status: Chronic (6) (normal spontaneous vaginal delivery) Onset Date: 10/12/18 Current Visit: No Status: Resolved Plan to address problem: A: S/P - PPD #1 Doing well Chronic hypertension with Preeclampsia - labile BP's on Labetolol 200mg BID and Procardia XL 30mg BID P: Will increase Labetolol to 300mg BID Anticipate discharge home tomorrow. Subjective - Subjective Date of service: 10/12/18 Principal diagnosis: s/p - PPD #1 Interval history: Pt is feeling well without complaints. Denies headaches or blurred vision. Bleeding improved. Patient reports: appetite normal, voiding normally, pain well controlled, flatus, ambulating normally, no dizzy ambulation, no nauseated : doing well, nursing well Objective - Vital Signs Latest vital signs: Vital Signs Temp Pulse Resp BP BP Pulse Ox 10/12/18 09:32 83 118/58 10/12/18 08:03 88 169/100 10/12/18 07:48 87 162/95 10/12/18 07:32 88 163/94 10/12/18 06:23 84 150/77 10/12/18 06:17 86 186/99 10/12/18 06:16 89 208/109 10/12/18 04:40 85 139/75 10/12/18 03:43 87 144/87 10/12/18 02:39 91 H 137/81 10/12/18 01:56 95 H 100 10/12/18 01:41 98.4 F 94 H 18 99 10/12/18 00:45 89 96/60 10/11/18 22:16 86 116/71 10/11/18 21:56 93 H 116/71 10/11/18 21:51 54 L 85 10/11/18 21:48 99.0 F 86 18 116/71 99 10/11/18 20:27 97 H 127/92 10/11/18 19:41 95 H 114/82 10/11/18 19:12 98.8 F 98 H 18 123/85 98 10/11/18 19:10 98 H 123/85 10/11/18 15:33 89 130/74 97 10/11/18 14:08 88 115/71 10/11/18 13:53 86 114/72 10/11/18 13:38 93 H 113/71 10/11/18 13:23 96 H 112/60 10/11/18 13:08 89 103/57 10/11/18 12:53 86 113/59 10/11/18 12:38 87 112/52 10/11/18 12:23 88 113/55 10/11/18 12:08 89 117/65 10/11/18 11:53 94 H 124/69 10/11/18 11:38 89 121/70 10/11/18 11:23 94 H 131/76 10/11/18 11:08 93 H 139/71 10/11/18 11:04 100 H 99 10/11/18 10:59 88 97 10/11/18 10:54 86 97 10/11/18 10:53 88 136/66 10/11/18 10:49 86 97 10/11/18 10:44 88 97 10/11/18 10:41 78 L 10/11/18 10:39 87 100 10/11/18 10:38 86 141/65 10/11/18 10:34 86 98 Intake and Output 10/11/18 10/12/18 10/12/18 22:59 06:59 14:59 Output Total 1950 1550 Balance -1950 -1550 Output: Urine 1950 1550 Indwelling Catheter 700 1550 Void 1250 Other: Total, Output Amount 100 300 # Bowel Movements 1 - Exam Abdomen: Present: normal appearance, soft Uterus: Present: normal, firm, fundal height below umbilicus Extremities: Present: normal - Labs Labs: Abnormal lab results 10/11/18 10/11/18 10/11/18 Range/Units 15:37 19:41 19:41 Hgb 8.2 L (10.1-14.3) gm/dl Hct 26.2 L (30.3-42.9) % Magnesium 4.50 H 4.30 H (1.7-2.3) mg/dL 10/12/18 Range/Units 01:53 Hgb (10.1-14.3) gm/dl Hct (30.3-42.9) % Magnesium 4.30 H (1.7-2.3) mg/dL Laboratory Tests 10/10/18 10/10/18 10/10/18 11:00 11:00 11:00 WBC 6.5 RBC 4.91 Hgb 9.0 L Hct 28.6 L MCV 58 L MCH 18 L MCHC 31 RDW 20.5 H Plt Count 181 Creatinine 0.6 L Estimated GFR > 60 Uric Acid 5.6 Magnesium AST 13 ALT 10 Lactate Dehydrogenase 206 H Urine Color [place] Urine Turbidity Cloudy Urine pH 6.0 Ur Specific [place] 1.014 Urine Protein 100 mg/dl Urine Glucose (UA) Neg Urine Ketones 20 Urine Blood Neg Urine Nitrite Neg Urine Bilirubin Neg Urine Urobilinogen 2.0 Ur Leukocyte Esterase Sm Urine WBC (Auto) 14.0 H Urine RBC (Auto) 4.0 U Epithel Cells (Auto) 51.0 H Urine Bacteria (Auto) 2+ Urine Mucus Few 10/10/18 10/11/18 10/11/18 21:53 07:30 15:37 WBC RBC Hgb Hct MCV MCH MCHC RDW Plt Count Creatinine Estimated GFR Uric Acid Magnesium 3.70 H 5.10 H 4.50 H AST ALT Lactate Dehydrogenase Urine Color Urine Turbidity Urine pH Ur Specific [place] Urine Protein Urine Glucose (UA) Urine Ketones Urine Blood Urine Nitrite Urine Bilirubin Urine Urobilinogen Ur Leukocyte Esterase Urine WBC (Auto) Urine RBC (Auto) U Epithel Cells (Auto) Urine Bacteria (Auto) Urine Mucus 10/11/18 10/11/18 10/12/18 19:41 19:41 01:53 WBC RBC Hgb 8.2 L Hct 26.2 L MCV MCH MCHC RDW Plt Count Creatinine Estimated GFR Uric Acid Magnesium 4.30 H 4.30 H AST ALT Lactate Dehydrogenase Urine Color Urine Turbidity Urine pH Ur Specific [place] Urine Protein Urine Glucose (UA) Urine Ketones Urine Blood Urine Nitrite Urine Bilirubin Urine Urobilinogen Ur Leukocyte Esterase Urine WBC (Auto) Urine RBC (Auto) U Epithel Cells (Auto) Urine Bacteria (Auto) Urine Mucus
[2018-10-12] MEDS: PROCARDIA XL PO SCH ×2 (10:47→21:43)
[2018-10-12] MEDS: APRESOLINE IV PRN (16:55)
[2018-10-13] MEDS: IBUPROFEN PO SCH ×2 (00:50→12:10)
[2018-10-13] MEDS: NORMODYNE PO SCH (10:20)
[2018-10-13] MEDS: PRENATAL VITAMIN PO SCH (10:23)
[2018-10-13] MEDS: PROCARDIA XL PO SCH (10:24)
[2018-10-13] MEDS: COLACE PO SCH (10:24)
[2018-10-13] MEDS: FEOSOL PO SCH (10:24)
--- NOTE | 2018-10-13 10:43 | Progress Note ---
Assessment and Plan - Patient Problems (1) 36 weeks gestation of Onset Date: 10/10/18 Current Visit: Yes Status: Resolved (2) Pre-eclampsia added to pre-existing hypertension Onset Date: 10/10/18 Current Visit: No Status: Chronic (3) AMA (advanced maternal age) multigravida 35+ Onset Date: 10/10/18 Current Visit: No Status: Chronic Qualifiers: Trimester: third trimester Qualified Code(s): O09.523 - Supervision of elderly multigravida, third trimester (4) Grand multipara Onset Date: 09/22/18 Current Visit: No Status: Chronic (5) Maternal morbid obesity in third trimester, antepartum Onset Date: 10/10/18 Current Visit: No Status: Chronic (6) (normal spontaneous vaginal delivery) Onset Date: 10/12/18 Current Visit: No Status: Resolved Plan to address problem: A: S/P - PPD #2 Doing well Chronic hypertension with Preeclampsia - stable on Labetolol 300mg BID and Procardia XL 30mg BID P: May go home today. Follow up in office in 1 week for BP check Subjective - Subjective Date of service: 10/13/18 Principal diagnosis: s/p - PPD #2 Interval history: Pt is feeling well without complaints. Denies headaches or blurred vision. Patient reports: appetite normal, voiding normally, pain well controlled, flatus, ambulating normally, no dizzy ambulation, no nauseated : doing well, nursing well Objective - Vital Signs Latest vital signs: Vital Signs Temp Pulse Resp BP BP Pulse Ox 10/13/18 10:20 92 H 129/81 10/13/18 07:41 98.6 F 91 H 18 148/95 96 10/12/18 23:22 98.5 F 89 20 130/79 96 10/12/18 17:15 87 155/88 10/12/18 17:05 86 160/102 10/12/18 16:55 85 166/104 10/12/18 16:49 99.1 F 84 18 166/104 99 Intake and Output 10/12/18 10/13/18 10/13/18 22:59 06:59 14:59 Intake Total 360 360 480 Balance 360 360 480 Intake: Oral 360 360 480 Other: Total, Intake Amount 360 360 480 # Voids Void 5 2 - Exam Abdomen: Present: normal appearance, soft Uterus: Present: normal, firm, fundal height below umbilicus Extremities: Present: normal
--- NOTE | 2018-10-13 10:45 | Discharge Summary ---
Providers - Providers Date of Admission: 10/10/18 15:00 Date of discharge: 10/13/18 Attending physician: JULIETA BEATTY Primary care physician: JULIETA BEATTY Hospitalization Reason for admission: IUP - (IUP @ 36 1/7 weeks; Chronic hypertension with Superimposed preeclampsia), induction of labor, other (Morbid Obesity; AMA) Delivery: Episiotomy: none Laceration: none Other procedures: none complications: other (Hypertension) Discharge diagnosis: delivery baby: male Hospital course: Pt is a 38yo BF EDC 11/07/18; EGA 36 0/7 weeks who was admitted for induction of labor at [facility] for evaluation of elevated BP's - 178/120 on 09/22/18. She had limited care at [facility], and has Chronic hypertension, but has been non-compliant with her visits and her BP meds which are Procardia 30mg BID and Labetolol 200mg BID. She was induced with cervidil followed by Pitocin and subsequently had an uncomplicated vaginal delivery. She received IV Magnesium sulfate during her induction and also . Her BP's were eventually controlled on Labetolol 300mg BID and Procardia XL 30mg BID, and by PPD #2 she was discharged to home in stable condition. Condition at discharge: Good Disposition: [id number] TO HOME OR SELFCARE - Discharge Diagnoses (1) 36 weeks gestation of Status: Resolved (2) Pre-eclampsia added to pre-existing hypertension Status: Chronic (3) AMA (advanced maternal age) multigravida 35+ Status: Chronic Qualifiers: Trimester: third trimester Qualified Code(s): O09.523 - Supervision of elderly multigravida, third trimester (4) Grand multipara Status: Chronic (5) Maternal morbid obesity in third trimester, antepartum Status: Chronic (6) (normal spontaneous vaginal delivery) Status: Resolved Plan - Discharge Medications Prescriptions: Ferrous Sulfate [Feosol 325 MG tab] 325 mg PO BID #60 tablet Ibuprofen [Motrin 600 MG tab] 600 mg PO Q6HR #30 tablet Labetalol [Normodyne TAB] 300 mg PO BID #60 tablet NIFEdipine XL [Procardia Xl] 30 mg PO Q12HR #60 tablet Vit-Fe Fumar-FA [ Vitamin] 1 each PO QDAY #30 tablet - Provider Discharge Summary Activity: routine, no sex for 6 weeks, no heavy lifting 4 weeks, no strenuous exercise Diet: routine Instructions: routine Additional instructions: [] Smoking cessation referral if applicable(refer to patient education folder for contact #) [] Refer to [facility]'s [facility] Booklet Call your doctor immediately for: * Fever > 100.5 * Heavy vaginal bleeding ( >1 pad per hour) * Severe persistent headache * Shortness of breath * Reddened, hot, painful area to leg or breast * Drainage or odor from incision. * Keep incision clean and dry at all times and follow doctor's instructions regarding bathing/showering Follow up in the office in 1 week for BP check - Follow up plan Follow up: JULIETA BEATTY MD [Primary Care Provider] - 7 Days Forms: Work/School Excuse Out Patient
[2018-10-13 16:25] VITALS: BP 145/91
== END 2018-10-13 16:40 | disposition home or self-care (01) | DRG 805 ==
LOC: TRG 10:44 → LD 15:00 → OB 10-12 10:26
PROVIDERS: ADMIT Obstetrics & Gynecology; ATTEND Obstetrics & Gynecology
PROC: 10E0XZZ Delivery of Products of Conception, External Approach (ICD-10-PCS; principal; 2018-10-11)
PROC: 3E0R3BZ Introduction of Anesthetic Agent into Spinal Canal, Percutaneous Approach (ICD-10-PCS; 2018-10-11)
PROC: 00HU33Z Insertion of Infusion Device into Spinal Canal, Percutaneous Approach (ICD-10-PCS; 2018-10-11)
PROC: 3E033VJ Introduction of Other Hormone into Peripheral Vein, Percutaneous Approach (ICD-10-PCS; 2018-10-11)
PROC: 3E0234Z Introduction of Serum, Toxoid and Vaccine into Muscle, Percutaneous Approach (ICD-10-PCS; 2018-10-12)
DX: O42.013 Preterm premature rupture of membranes, onset of labor within 24 hours of rupture, third trimester (principal); O60.14X0 Preterm labor third trimester with preterm delivery third trimester, not applicable or unspecified; Z37.0 Single live birth; O11.4 Pre-existing hypertension with pre-eclampsia, complicating childbirth; Z3A.36 36 weeks gestation of pregnancy; E66.01 Morbid (severe) obesity due to excess calories; Z71.3 Dietary counseling and surveillance; Z23 Encounter for immunization; O99.214 Obesity complicating childbirth
CPT/HCPCS: 36415; 59025; 81001; 82565; 83615; 83735; 84450; 84460; 84550; 85014; 85018; 85027; 88307; 96374; G0378; J0290; J0360; J0595; J2590; J3010; J3475; J7120

== ENCOUNTER 2019-09-24 16:43 | Inpatient (IN) | payer OTHER ==
[2019-09-24] MEDS ORDERED: hydrALAZINE 20 MG/1 ML INJ ONE (18:22)
[2019-09-24 18:28] LABS: Hematocrit 28.3 % (30.3-42.9); Hemoglobin 9.5 gm/dl (10.1-14.3); Mean Corpuscular HGB Conc 34 % (30-34); Platelet Count 221 K/mm3 (140-440); Red Cell Distribution Width 16.6 % (13.2-15.2)
[2019-09-24] MEDS ORDERED: hydrALAZINE 20 MG/1 ML INJ IV ONE (18:30)
[2019-09-24 18:32] LABS: Mean Corpuscular Volume 64 fl (79-97)
[2019-09-24 18:57] LABS: Bilirubin,Urine NEG (Negative); Blood,Urine NEG (Negative); Color,Urine Yellow (Yellow); Mucus,Urine FEW /HPF
[2019-09-24 19:03] LABS: Creatinine,Urine 176.2 mg/dL (0.1-20.0)
[2019-09-24 19:11] LABS: Alanine Aminotransferase 14 units/L (7-56); Uric Acid 4.7 mg/dL (3.5-7.6)
--- NOTE | 2019-09-24 19:25 | History and Physical Report ---
History of Present Illness Date of examination: 09/24/19 Chief complaint: Elevated BP History of present illness: Pt is a 39yo BF EDC 10/21/19; EGA 36 1/7 weeks was seen here at [facility] for e valuation of elevated BP's - 179/116 in Triage. She denies headaches or blurred vision. She has had limited care at [facility] - only 2 visits. She has Chronic hypertension, and has been non-compliant with her visits and her BP meds which are Procardia 30mg BID and Labetolol 200mg BID. records are available, and GBS is unknown. She had a similar presentation a year ago, and was delivered by ga 10/10/18. Past History Past Medical History: hypertension Past Surgical History: no surgical history Social history: no significant social history, - Obstetrical History Expected Date of Delivery: 10/21/19 Actual Gestation: 36 Week(s) 2 Day(s) : 9 Medications and Allergies Allergies Allergy/AdvReac Type Severity Reaction Status Date / Time No Known Allergies Allergy Verified 10/10/18 11:45 Home Medications Medication Instructions Recorded Confirmed Last Taken Type Multivitamin with Iron 1 each PO DAILY #30 tablet 09/01/17 10/10/18 09/24/18 Rx [Multivitamins with Iron] labetaloL [Labetalol 200mg TAB] 200 mg PO BID #60 tablet 09/24/18 10/10/18 10/10/18 07:00 Rx 1 Methyldopa 250 mg PO BID 10/10/18 10/10/18 10/10/18 07:00 History Ferrous Sulfate [Feosol 325 MG tab] 325 mg PO BID #60 tablet 10/13/18 Unknown Rx Ibuprofen [Motrin 600 MG tab] 600 mg PO Q6HR #30 tablet 10/13/18 Unknown Rx NIFEdipine XL [Procardia Xl] 30 mg PO Q12HR #60 tablet 10/13/18 Unknown Rx Vit-Fe Fumar-FA [ 1 each PO QDAY #30 tablet 10/13/18 Unknown Rx Vitamin] labetaloL [Labetalol 200mg TAB] 300 mg PO BID #60 tablet 10/13/18 Unknown Rx Review of Systems All systems: negative - Vital Signs Vital signs: Vital Signs Pulse Pulse Ox 68 98 09/24/19 17:05 09/24/19 17:05 Temp Pulse Resp BP Pulse Ox 98.3 F 92 H 18 165/89 100 09/24/19 17:24 09/24/19 19:16 09/24/19 17:24 09/24/19 19:11 09/24/19 19:16 - Physical Exam Breasts: Positive: deferred Abdomen: Positive: normal appearance, soft Genitourinary (Female): Positive: normal external genitalia Uterus: Positive: enlarged Extremities: Positive: normal - Obstetrical FHR: category 1 Uterine Contraction Monitor Mode: External Cervical Dilatation: 1 (per nurse) Cervical Effacement Percentage: 30 (per nurse) station: -1 Uterine Contraction Pattern: Irregular Results Result Diagrams: 09/24/19 18:25 09/24/19 18:25 Abnormal lab results 09/24/19 09/24/19 09/24/19 Range/Units 18:25 18:25 Unknown Hgb 9.5 L (10.1-14.3) gm/dl Hct 28.3 L (30.3-42.9) % MCV 64 L (79-97) fl MCH 22 L (28-32) pg RDW 16.6 H (13.2-15.2) % Creatinine 0.6 L (0.7-1.2) mg/dL Lactate Dehydrogenase 200 H (91-180) units/L Urine Creatinine 176.2 H (0.1-20.0) mg/dL All other labs normal. Assessment and Plan - Patient Problems (1) 36 weeks gestation of Onset Date: 09/24/19 Current Visit: No Status: Acute Plan to address problem: A: IUP @ 36 1/7 weeks Chronic hypertension with superimposed preeclampsia AMA P: Admit to L&D for cervidil/pitocin induction of labor Begin IV Hydralazine prn and IV Magnesium sulfate as needed IV Ampicillin when in active labor (2) AMA (advanced maternal age) multigravida 35+ Onset Date: 09/24/19 Current Visit: No Status: Chronic Qualifiers: Trimester: third trimester Qualified Code(s): O09.523 - Supervision of elderly multigravida, third trimester (3) Pre-eclampsia added to pre-existing hypertension Onset Date: 09/24/19 Current Visit: No Status: Chronic
[2019-09-24] MEDS ORDERED: MINERAL OIL 30 ML ORAL LIQD PO PRN (19:29)
[2019-09-24] MEDS ORDERED: TERBUTALINE 1 MG/1 ML INJ IVP PRN (19:29)
[2019-09-24] MEDS ORDERED: TERBUTALINE 1 MG/1 ML INJ SUB-Q PRN (19:29)
[2019-09-24] MEDS ORDERED: ePHEDrine SULFATE 50 MG/1 ML INJ IV PRN (19:29)
[2019-09-24] MEDS ORDERED: BUTORPHANOL 2 MG/1 ML INJ IV PRN (19:29)
[2019-09-24] MEDS ORDERED: OXYTOCIN DRIP 30 UNITS/500 ML BAG IV SCH ×2 (20:00)
[2019-09-24] MEDS ORDERED: DINOPROSTONE 10 MG VAG SUPP VG ONE (20:00)
[2019-09-24] MEDS ORDERED: AMPICILLIN/NS 2 GM/100 ML 2 GM/100 ML BAG IV ONE (20:00)
[2019-09-24] MEDS ORDERED: OXYTOCIN 20 UNIT/1000ML DRIP 20 UNITS/1,000 ML BAG IV SCH (20:00)
[2019-09-24] MEDS ORDERED: LIDOCAINE (2%) 20 MG/1 ML VIAL 20 ML MDV INFILTRATI ONE (20:00)
[2019-09-24] MEDS: hydrALAZINE 20 MG/1 ML INJ IV PRN ×2 (20:02→20:46)
[2019-09-24] MEDS: LACTATED RINGERS 1,000 ML IV SCH (20:04)
[2019-09-24] MEDS ORDERED: ACETAMINOPHEN W/CODEINE 300-30 MG TAB PO PRN (21:46)
[2019-09-24] MEDS ORDERED: BICITRA ORAL LIQD 30ML PO ONE (21:48)
[2019-09-24] MEDS ORDERED: MAGNESIUM SULFATE 4 GM/100 ML BAG IV ONE (21:48)
[2019-09-24] MEDS: MAGNESIUM SULFATE 40GM/1000ML 40 GM/1,000 ML BAG IV SCH (22:20)
[2019-09-25] MEDS: AMPICILLIN/NS 1 GM/50 ML 1 GM/50 ML BAG IV SCH ×4 (00:10→11:35)
[2019-09-25] MEDS ORDERED: MAGNESIUM SULFATE 4 GM/100 ML BAG IV ONE (01:53)
[2019-09-25] MEDS: fentaNYL 100 MCG/2 ML INJ IV PRN ×4 (04:09→14:43)
[2019-09-25] MEDS: hydrALAZINE 20 MG/1 ML INJ IV PRN (04:17)
--- NOTE | 2019-09-25 08:26 | Progress Note ---
Assessment and Plan - Patient Problems (1) 36 weeks gestation of Onset Date: 09/24/19 Current Visit: No Status: Acute Plan to address problem: A: IUP @ 36 2/7 weeks Chronic hypertension with superimposed preeclampsia AMA P: Continue with cervidil/pitocin induction of labor Continue IV Hydralazine prn and IV Magnesium sulfate IV Ampicillin when in active labor Expectant vaginal delivery (2) AMA (advanced maternal age) multigravida 35+ Onset Date: 09/24/19 Current Visit: No Status: Chronic Qualifiers: Trimester: third trimester Qualified Code(s): O09.523 - Supervision of elderly multigravida, third trimester (3) Pre-eclampsia added to pre-existing hypertension Onset Date: 09/24/19 Current Visit: No Status: Chronic Subjective - Subjective Date of service: 09/25/19 Principal diagnosis: IUP @ 36 2/7 weeks; Chronic hypertension with superimposed preeclampsia Interval history: Pt is a 39yo BF EDC 10/21/19; EGA 36 2/7 weeks was seen here at [facility] for evaluation of elevated BP's - 179/116 in Triage. She denied headaches or blurred vision, but has had limited care at [facility] - only 2 visits. She has Chronic hypertension, and has been non-compliant with her visits and her BP meds which are Procardia 30mg BID and Labetolol 200mg BID. records are available, and GBS is unknown. She received cervidil last night, and is having irregular contractions. Patient reports: movement normal, contractions, no new complaints, no loss of fluid, no vaginal bleeding Objective - Vital Signs Vital Signs: Vital Signs - 12hr 09/24/19 09/24/19 09/24/19 20:23 20:24 20:29 Temperature Pulse Rate 109 H 110 H 117 H Respiratory Rate Blood Pressure 195/103 O2 Sat by Pulse 98 99 Oximetry 09/24/19 09/24/19 09/24/19 20:34 20:38 20:39 Temperature Pulse Rate 108 H 103 H 121 H Respiratory Rate Blood Pressure 185/102 O2 Sat by Pulse 99 99 Oximetry 09/24/19 09/24/19 09/24/19 20:44 20:46 20:49 Temperature Pulse Rate 116 H 115 H 113 H Respiratory Rate Blood Pressure 185/102 O2 Sat by Pulse 97 98 Oximetry 09/24/19 09/24/19 09/24/19 20:53 20:54 20:59 Temperature Pulse Rate 111 H 122 H 114 H Respiratory Rate Blood Pressure 179/101 O2 Sat by Pulse 99 99 Oximetry 09/24/19 09/24/19 09/24/19 21:00 21:04 21:06 Temperature 98.5 F Pulse Rate 118 H 114 H Respiratory Rate Blood Pressure 170/92 O2 Sat by Pulse 99 Oximetry 09/24/19 09/24/19 09/24/19 21:09 21:14 21:19 Temperature Pulse Rate 114 H 117 H 114 H Respiratory Rate Blood Pressure O2 Sat by Pulse 99 99 99 Oximetry 09/24/19 09/24/19 09/24/19 21:24 21:29 21:34 Temperature Pulse Rate 112 H 117 H 112 H Respiratory Rate Blood Pressure 165/93 O2 Sat by Pulse 100 99 98 Oximetry 09/24/19 09/24/19 09/24/19 21:38 21:39 21:44 Temperature Pulse Rate 110 H 113 H 117 H Respiratory Rate Blood Pressure 165/92 191/106 O2 Sat by Pulse 98 Oximetry 09/24/19 09/24/19 09/24/19 21:53 21:58 22:00 Temperature Pulse Rate 114 H 121 H Respiratory 20 Rate Blood Pressure 170/91 O2 Sat by Pulse 100 100 99 Oximetry 09/24/19 09/24/19 09/24/19 22:03 22:04 22:08 Temperature Pulse Rate 109 H 110 H 109 H Respiratory Rate Blood Pressure 181/95 178/95 O2 Sat by Pulse 100 Oximetry 09/24/19 09/24/19 09/24/19 22:09 22:14 22:15 Temperature Pulse Rate 108 H 115 H 116 H Respiratory Rate Blood Pressure 190/95 O2 Sat by Pulse 100 99 Oximetry 09/24/19 09/24/19 09/24/19 22:19 22:23 22:24 Temperature Pulse Rate 111 H 108 H 108 H Respiratory Rate Blood Pressure 186/91 O2 Sat by Pulse 100 100 Oximetry 09/24/19 09/24/19 09/24/19 22:35 22:38 22:40 Temperature Pulse Rate 105 H 101 H 104 H Respiratory Rate Blood Pressure 189/99 172/91 O2 Sat by Pulse 100 100 Oximetry 09/24/19 09/24/19 09/24/19 22:45 22:50 22:53 Temperature Pulse Rate 106 H 103 H 106 H Respiratory Rate Blood Pressure 187/97 O2 Sat by Pulse 100 100 Oximetry 09/24/19 09/24/19 09/24/19 22:55 23:00 23:05 Temperature Pulse Rate 106 H 110 H 108 H Respiratory 18 Rate Blood Pressure O2 Sat by Pulse 100 99 100 Oximetry 09/24/19 09/24/19 09/24/19 23:08 23:10 23:11 Temperature Pulse Rate 107 H 109 H 107 H Respiratory Rate Blood Pressure 180/97 174/90 O2 Sat by Pulse 100 Oximetry 09/24/19 09/24/19 09/24/19 23:15 23:20 23:23 Temperature Pulse Rate 110 H 102 H 107 H Respiratory Rate Blood Pressure 170/89 O2 Sat by Pulse 100 100 Oximetry 09/24/19 09/24/19 09/24/19 23:25 23:30 23:35 Temperature Pulse Rate 104 H 103 H 103 H Respiratory Rate Blood Pressure O2 Sat by Pulse 100 100 100 Oximetry 09/24/19 09/24/19 09/24/19 23:38 23:40 23:45 Temperature Pulse Rate 109 H 104 H 103 H Respiratory Rate Blood Pressure 171/89 O2 Sat by Pulse 99 99 Oximetry 09/24/19 09/24/19 09/25/19 23:50 23:55 00:00 Temperature 98.3 F Pulse Rate 107 H 109 H 104 H Respiratory 18 Rate Blood Pressure O2 Sat by Pulse 99 99 99 Oximetry 09/25/19 09/25/19 09/25/19 00:05 00:10 00:15 Temperature Pulse Rate 106 H 102 H 101 H Respiratory Rate Blood Pressure O2 Sat by Pulse 100 100 99 Oximetry 09/25/19 09/25/19 09/25/19 00:18 00:20 00:25 Temperature Pulse Rate 99 H 99 H 102 H Respiratory Rate Blood Pressure 158/79 O2 Sat by Pulse 99 99 Oximetry 09/25/19 09/25/19 09/25/19 00:30 00:35 00:40 Temperature Pulse Rate 103 H 101 H 100 H Respiratory Rate Blood Pressure O2 Sat by Pulse 99 99 99 Oximetry 09/25/19 09/25/19 09/25/19 00:45 00:48 00:51 Temperature Pulse Rate 102 H 104 H 103 H Respiratory Rate Blood Pressure 157/83 O2 Sat by Pulse 99 99 Oximetry 09/25/19 09/25/19 09/25/19 00:56 01:01 01:04 Temperature Pulse Rate 100 H 109 H Respiratory 18 Rate Blood Pressure O2 Sat by Pulse 100 98 99 Oximetry 09/25/19 09/25/19 09/25/19 01:06 01:11 01:16 Temperature Pulse Rate 111 H 98 H 102 H Respiratory Rate Blood Pressure O2 Sat by Pulse 99 98 99 Oximetry 09/25/19 09/25/19 09/25/19 01:18 01:21 01:26 Temperature Pulse Rate 98 H 99 H 97 H Respiratory Rate Blood Pressure 157/79 O2 Sat by Pulse 99 98 Oximetry 09/25/19 09/25/19 09/25/19 01:31 01:36 01:41 Temperature Pulse Rate 103 H 99 H 96 H Respiratory Rate Blood Pressure O2 Sat by Pulse 99 99 98 Oximetry 09/25/19 09/25/19 09/25/19 01:46 01:48 01:51 Temperature Pulse Rate 99 H 103 H 100 H Respiratory Rate Blood Pressure 160/81 O2 Sat by Pulse 98 99 Oximetry 09/25/19 09/25/19 09/25/19 01:56 02:01 02:04 Temperature Pulse Rate 98 H 100 H Respiratory 16 Rate Blood Pressure O2 Sat by Pulse 99 99 99 Oximetry 09/25/19 09/25/19 09/25/19 02:06 02:11 02:16 Temperature Pulse Rate 98 H 105 H 96 H Respiratory Rate Blood Pressure O2 Sat by Pulse 98 99 99 Oximetry 09/25/19 09/25/19 09/25/19 02:18 02:21 02:26 Temperature Pulse Rate 98 H 104 H 86 Respiratory Rate Blood Pressure 178/88 O2 Sat by Pulse 99 98 Oximetry 09/25/19 09/25/19 09/25/19 02:27 02:31 02:36 Temperature Pulse Rate 97 H 99 H 95 H Respiratory Rate Blood Pressure 204/105 175/94 O2 Sat by Pulse 98 99 Oximetry 09/25/19 09/25/19 09/25/19 02:41 02:46 02:51 Temperature Pulse Rate 94 H 96 H 94 H Respiratory Rate Blood Pressure O2 Sat by Pulse 99 99 99 Oximetry 09/25/19 09/25/19 09/25/19 02:56 03:00 03:01 Temperature Pulse Rate 96 H 95 H Respiratory 18 Rate Blood Pressure O2 Sat by Pulse 99 99 99 Oximetry 09/25/19 09/25/19 09/25/19 03:06 03:11 03:16 Temperature Pulse Rate 99 H 101 H 112 H Respiratory Rate Blood Pressure O2 Sat by Pulse 99 99 99 Oximetry 09/25/19 09/25/19 09/25/19 03:21 03:26 03:31 Temperature Pulse Rate 106 H 100 H 99 H Respiratory Rate Blood Pressure O2 Sat by Pulse 99 99 99 Oximetry 09/25/19 09/25/19 09/25/19 03:33 03:36 03:41 Temperature Pulse Rate 109 H 96 H 107 H Respiratory Rate Blood Pressure 196/107 O2 Sat by Pulse 100 100 Oximetry 09/25/19 09/25/19 09/25/19 03:44 03:46 03:51 Temperature Pulse Rate 103 H 100 H 103 H Respiratory Rate Blood Pressure 186/101 O2 Sat by Pulse 99 99 Oximetry 09/25/19 09/25/19 09/25/19 03:56 04:00 04:01 Temperature Pulse Rate 99 H 98 H Respiratory 18 Rate Blood Pressure O2 Sat by Pulse 99 99 Oximetry 09/25/19 09/25/19 09/25/19 04:06 04:11 04:13 Temperature Pulse Rate 110 H 111 H 104 H Respiratory Rate Blood Pressure 180/103 O2 Sat by Pulse 99 99 Oximetry 09/25/19 09/25/19 09/25/19 04:16 04:17 04:21 Temperature Pulse Rate 104 H 105 H 98 H Respiratory Rate Blood Pressure 180/103 O2 Sat by Pulse 98 99 Oximetry 09/25/19 09/25/19 09/25/19 04:26 04:31 04:33 Temperature Pulse Rate 104 H 105 H 104 H Respiratory Rate Blood Pressure 172/92 O2 Sat by Pulse 99 98 Oximetry 09/25/19 09/25/19 09/25/19 04:36 04:41 04:46 Temperature Pulse Rate 103 H 103 H 104 H Respiratory Rate Blood Pressure O2 Sat by Pulse 98 99 98 Oximetry 09/25/19 09/25/19 09/25/19 04:51 04:56 05:00 Temperature Pulse Rate 100 H 98 H Respiratory 16 Rate Blood Pressure O2 Sat by Pulse 98 99 99 Oximetry 09/25/19 09/25/19 09/25/19 05:01 05:06 05:11 Temperature Pulse Rate 100 H 102 H 100 H Respiratory Rate Blood Pressure O2 Sat by Pulse 98 99 98 Oximetry 09/25/19 09/25/19 09/25/19 05:16 05:21 05:26 Temperature Pulse Rate 101 H 104 H 107 H Respiratory Rate Blood Pressure O2 Sat by Pulse 98 98 98 Oximetry 09/25/19 09/25/19 09/25/19 05:31 05:33 05:36 Temperature Pulse Rate 100 H 103 H 100 H Respiratory Rate Blood Pressure 181/98 O2 Sat by Pulse 99 98 Oximetry 09/25/19 09/25/19 09/25/19 05:41 05:46 05:51 Temperature Pulse Rate 118 H 104 H 108 H Respiratory Rate Blood Pressure O2 Sat by Pulse 99 99 98 Oximetry 09/25/19 09/25/19 09/25/19 05:56 06:01 06:06 Temperature Pulse Rate 97 H 100 H 98 H Respiratory Rate Blood Pressure O2 Sat by Pulse 99 99 99 Oximetry 09/25/19 09/25/19 09/25/19 06:11 06:16 06:21 Temperature Pulse Rate 99 H 98 H 94 H Respiratory Rate Blood Pressure O2 Sat by Pulse 98 99 99 Oximetry 09/25/19 09/25/19 09/25/19 06:26 06:29 06:31 Temperature Pulse Rate 96 H 93 H Respiratory 20 Rate Blood Pressure O2 Sat by Pulse 99 99 99 Oximetry 09/25/19 09/25/19 09/25/19 06:33 06:36 06:41 Temperature Pulse Rate 95 H 99 H 98 H Respiratory Rate Blood Pressure 168/87 O2 Sat by Pulse 99 99 Oximetry 09/25/19 09/25/19 09/25/19 06:46 06:51 06:56 Temperature Pulse Rate 97 H 98 H 98 H Respiratory Rate Blood Pressure 168/87 O2 Sat by Pulse 99 99 98 Oximetry 09/25/19 09/25/19 09/25/19 07:01 07:06 07:11 Temperature Pulse Rate 108 H 101 H 104 H Respiratory Rate Blood Pressure O2 Sat by Pulse 99 99 99 Oximetry 09/25/19 09/25/19 09/25/19 07:16 07:21 07:25 Temperature 97.8 F Pulse Rate 102 H 104 H 104 H Respiratory Rate Blood Pressure 138/89 O2 Sat by Pulse 98 99 Oximetry 09/25/19 09/25/19 09/25/19 07:26 07:31 07:32 Temperature Pulse Rate 100 H 95 H 95 H Respiratory Rate Blood Pressure 159/89 O2 Sat by Pulse 98 98 Oximetry 09/25/19 09/25/19 09/25/19 07:36 07:41 07:46 Temperature Pulse Rate 95 H 95 H 102 H Respiratory Rate Blood Pressure O2 Sat by Pulse 98 97 98 Oximetry 09/25/19 09/25/19 09/25/19 07:51 07:56 08:01 Temperature Pulse Rate 93 H 92 H 92 H Respiratory Rate Blood Pressure O2 Sat by Pulse 97 97 98 Oximetry 09/25/19 09/25/19 09/25/19 08:06 08:11 08:16 Temperature Pulse Rate 92 H 105 H 93 H Respiratory Rate Blood Pressure O2 Sat by Pulse 98 97 98 Oximetry - Exam Abdomen: Present: normal appearance, soft Uterus: Present: normal FHR: category 1 Uterine Contraction Monitor Mode: External Uterine Contraction Pattern: Irregular Uterine Tone Measurement Phase: Contraction Uterine Contraction Intensity: Mild - Labs Labs: Abnormal Labs 09/24/19 09/24/19 09/24/19 18:25 18:25 18:25 Hgb 9.5 L Hct 28.3 L MCV 64 L MCH 22 L RDW 16.6 H Creatinine 0.6 L 0.6 L Magnesium Lactate Dehydrogenase 200 H Urine Creatinine 09/24/19 09/25/19 Unknown 04:27 Hgb Hct MCV MCH RDW Creatinine Magnesium 3.80 H Lactate Dehydrogenase Urine Creatinine 176.2 H Laboratory Results - last 24 hr 09/24/19 09/24/19 09/24/19 18:25 18:25 18:25 WBC 6.6 RBC 4.40 Hgb 9.5 L Hct 28.3 L MCV 64 L MCH 22 L MCHC 34 RDW 16.6 H Plt Count 221 Creatinine 0.6 L 0.6 L Estimated GFR > 60 Uric Acid 4.7 Magnesium AST 15 ALT 14 Lactate Dehydrogenase 200 H Amylase 73 Urine Color Urine Turbidity Urine pH Ur Specific [place] Urine Protein Urine Glucose (UA) Urine Ketones Urine Blood Urine Nitrite Urine Bilirubin Urine Urobilinogen Ur Leukocyte Esterase Urine WBC (Auto) Urine RBC (Auto) U Epithel Cells (Auto) Urine Mucus Urine Creatinine Urine Amylase Amylase/Creat Ratio 2.3 Blood Type Antibody Screen 09/24/19 09/24/19 09/24/19 19:40 Unknown Unknown WBC RBC Hgb Hct MCV MCH MCHC RDW Plt Count Creatinine Estimated GFR Uric Acid Magnesium AST ALT Lactate Dehydrogenase Amylase Urine Color Yellow Urine Turbidity Clear Urine pH 5.0 Ur Specific [place] 1.015 Urine Protein 100 mg/dl Urine Glucose (UA) Neg Urine Ketones Neg Urine Blood Neg Urine Nitrite Neg Urine Bilirubin Neg Urine Urobilinogen 2.0 Ur Leukocyte Esterase Tr Urine WBC (Auto) 2.0 Urine RBC (Auto) 3.0 U Epithel Cells (Auto) 6.0 Urine Mucus Few Urine Creatinine 176.2 H Urine Amylase 406 Amylase/Creat Ratio Blood Type O POSITIVE Antibody Screen Negative 09/25/19 04:27 WBC RBC Hgb Hct MCV MCH MCHC RDW Plt Count Creatinine Estimated GFR Uric Acid Magnesium 3.80 H AST ALT Lactate Dehydrogenase Amylase Urine Color Urine Turbidity Urine pH Ur Specific [place] Urine Protein Urine Glucose (UA) Urine Ketones Urine Blood Urine Nitrite Urine Bilirubin Urine Urobilinogen Ur Leukocyte Esterase Urine WBC (Auto) Urine RBC (Auto) U Epithel Cells (Auto) Urine Mucus Urine Creatinine Urine Amylase Amylase/Creat Ratio Blood Type Antibody Screen
[2019-09-25] MEDS: LACTATED RINGERS 1,000 ML IV SCH ×2 (08:55→16:01)
[2019-09-25] MEDS: NIFEdipine XL 30 MG TAB PO SCH (11:36)
[2019-09-25] MEDS ORDERED: LIDOCAINE (2%) 20 MG/1 ML VIAL 20 ML MDV INFILTRATI ONE (17:06)
[2019-09-25] MEDS ORDERED: DEXMEDETOMIDINE 200 MCG/2 ML VIAL IV ONE (17:32)
[2019-09-25] MEDS ORDERED: NALOXONE 2 MG/2 ML INJ IV PRN (17:50)
[2019-09-25] MEDS ORDERED: ePHEDrine SULFATE 50 MG/1 ML INJ IV PRN (17:50)
--- NOTE | 2019-09-25 17:50 | Anesthesia Consultation ---
Anesthesia Consult and Med Hx Date of service: 09/25/19 - Airway Anesthetic Teeth Evaluation: Good ROM Head & Neck: Adequate Mallampati Class: Class II Intubation Access Assessment: Good - Pulmonary Exam CTA: Yes - Cardiac Exam Cardiac Exam: RRR - Pre-Operative Health Status ASA Pre-Surgery Classification: ASA2, Emergency Proposed Anesthetic Plan: Epidural - Pulmonary Hx Asthma: No COPD: No Hx Pneumonia: No - Cardiovascular System Hx Hypertension: Yes - Central Nervous System Hx Seizures: No Hx Psychiatric Problems: No - Endocrine Hx Renal Disease: No Hx End Stage Renal Disease: No Hx Hypothyroidism: No Hx Hyperthyroidism: No - Hematic Hx Anemia: No Hx Sickle Cell Disease: No - Other Systems Hx Alcohol Use: No Hx Obesity: Yes (morbid, BMI 51)
[2019-09-25] MEDS ORDERED: fentaNYL-BUPIV 2 MCG/ML-0.125% 200 MCG/100 ML BAG EPIDURAL SCH (18:00)
--- NOTE | 2019-09-25 18:19 | Procedure Note ---
OB Delivery Note - Delivery Date of Delivery: 09/25/19 Surgeon: JULIETA BEATTY Estimated blood loss: 100cc - Vaginal Delivery presentation: vertex Delivery position: OP Intrapartum events: labor-<37 weeks, preeclampsia Delivery induction: cervidil Delivery augmentation: rupture of membranes, pitocin Delivery monitor: external FHT, external uterine Route of delivery: Delivery placenta: spontaneous Delivery cord: 3 umbilical vessels Episiotomy: none Delivery laceration: none Anesthesia: epidural Delivery comments: Infant delivered OP and placed on Mom's chest for [id number] bonding and delayed cord clamping, cut by Mom, and handed to awaiting Peds/RT - A at 1 minute: 2 at 5 minutes: 7 Infant Gender: Male ([id number])
[2019-09-25] MEDS ORDERED: MAGNESIUM HYDROXIDE (MOM) ORAL LIQD UDC PO PRN (18:24)
[2019-09-25] MEDS ORDERED: ONDANSETRON 4 MG/2 ML INJ IV PRN (18:24)
[2019-09-25] MEDS ORDERED: HYDROcodone/ACETAMINOPHEN 5-325 MG TAB PO PRN (18:24)
[2019-09-25] MEDS ORDERED: ACETAMINOPHEN 325 MG TAB PO PRN (18:24)
[2019-09-25] MEDS ORDERED: WITCH HAZEL/ GLYCERIN PAD TP PRN (18:24)
[2019-09-25] MEDS ORDERED: PROMETHAZINE 25 MG RECT SUPP PR PRN (18:24)
[2019-09-25] MEDS ORDERED: LANOLIN/ZINC/DIMETHICONE (LANSINOH) 7 GM TP PRN (18:24)
[2019-09-25] MEDS ORDERED: PROMETHAZINE 25 MG TAB PO PRN (18:24)
[2019-09-25] MEDS ORDERED: diphenhydrAMINE 25 MG CAP PO PRN (18:24)
[2019-09-25] MEDS ORDERED: OXYTOCIN 20 UNIT/1000ML DRIP 20 UNITS/1,000 ML BAG IV SCH (19:00)
[2019-09-25] MEDS: FERROUS SULFATE 325 MG TAB PO SCH (21:09)
[2019-09-25] MEDS: DOCUSATE SODIUM 100 MG CAP PO SCH (21:09)
[2019-09-25] MEDS: IBUPROFEN 600 MG TAB PO SCH (21:09)
[2019-09-26] MEDS: IBUPROFEN 600 MG TAB PO SCH ×2 (01:30→06:26)
[2019-09-26] MEDS ORDERED: TETANUS,DIPH,PERTUSS(ACELL) VACCINE 0.5 ML SYRINGE IM ONE (06:00)
[2019-09-26] MEDS ORDERED: MEASLES, MUMPS & RUBELLA 12,500 UNIT/0.5 ML VACCINE SUB-Q ONE (06:00)
[2019-09-26] MEDS: DOCUSATE SODIUM 100 MG CAP PO SCH (09:21)
[2019-09-26] MEDS: NIFEdipine XL 30 MG TAB PO SCH (09:21)
[2019-09-26] MEDS: PRENATAL VIT27-FE FUMARATE-FOLIC ACID VIT TAB PO SCH (09:21)
[2019-09-26] MEDS: FERROUS SULFATE 325 MG TAB PO SCH ×2 (09:22→21:45)
[2019-09-26 09:31] LABS: Hemoglobin 9.7 gm/dl (10.1-14.3)
[2019-09-26] MEDS: LACTATED RINGERS 1,000 ML IV SCH (10:15)
--- NOTE | 2019-09-26 11:03 | Progress Note ---
Assessment and Plan - Patient Problems (1) 36 weeks gestation of Onset Date: 09/24/19 Current Visit: No Status: Resolved (2) AMA (advanced maternal age) multigravida 35+ Onset Date: 09/24/19 Current Visit: No Status: Chronic Qualifiers: Trimester: third trimester Qualified Code(s): O09.523 - Supervision of elderly multigravida, third trimester (3) Pre-eclampsia added to pre-existing hypertension Onset Date: 09/24/19 Current Visit: No Status: Chronic (4) (normal spontaneous vaginal delivery) Onset Date: 10/12/18 Current Visit: No Status: Resolved Plan to address problem: A: S/P - PPD #1 Doing well Preeclampsia - s/p IV Magnesium sulfate P: Will transfer to floor after IV Magnesium sulfate Anticipate discharge tomorrow. Subjective - Subjective Date of service: 09/26/19 Principal diagnosis: s/p - PPD #1; Chronic hypertension with superimposed preeclampsia Interval history: Pt is feeling well without complaints. Bleeding improved. She denies headaches or blurred vision. Patient reports: appetite normal, voiding normally, pain well controlled, flatus, ambulating normally, no dizzy ambulation, no nauseated Alpha: doing well, in NICU Objective - Vital Signs Latest vital signs: Vital Signs Temp Pulse Resp BP BP Pulse Ox 09/26/19 10:10 86 116/64 09/26/19 09:21 152/107 09/26/19 09:15 96 H 152/107 09/26/19 08:59 83 99 09/26/19 08:54 75 99 09/26/19 08:49 77 98 09/26/19 08:46 82 154/74 09/26/19 08:44 79 97 09/26/19 08:39 80 98 09/26/19 08:34 79 97 09/26/19 08:29 84 99 09/26/19 08:24 81 98 09/26/19 08:19 78 99 09/26/19 08:15 94 H 132/76 09/26/19 08:14 82 98 09/26/19 08:09 81 98 09/26/19 08:04 82 98 09/26/19 07:59 82 98 09/26/19 07:54 79 98 09/26/19 07:49 81 98 09/26/19 07:44 83 98 09/26/19 07:43 98.2 F 20 09/26/19 07:42 82 152/78 09/26/19 07:40 81 167/96 09/26/19 07:39 79 98 09/26/19 07:34 77 98 09/26/19 07:29 78 98 09/26/19 07:24 82 98 09/26/19 07:19 80 98 09/26/19 07:15 82 162/84 09/26/19 07:14 87 98 09/26/19 07:09 82 98 09/26/19 07:04 74 97 09/26/19 06:59 84 98 09/26/19 06:54 83 98 09/26/19 06:49 84 97 09/26/19 06:45 82 163/88 09/26/19 06:44 81 99 09/26/19 06:39 90 98 09/26/19 06:34 91 H 99 09/26/19 06:29 82 98 09/26/19 06:26 18 09/26/19 06:24 80 99 09/26/19 06:19 84 99 09/26/19 06:15 83 139/74 09/26/19 06:14 77 98 09/26/19 06:09 82 98 09/26/19 06:04 83 99 09/26/19 05:59 89 98 09/26/19 05:54 81 98 09/26/19 05:49 82 98 09/26/19 05:44 79 98 09/26/19 05:39 83 98 09/26/19 05:34 82 98 09/26/19 05:29 85 99 09/26/19 05:24 87 98 09/26/19 05:19 84 98 09/26/19 05:14 85 100 09/26/19 05:09 84 100 09/26/19 05:04 82 99 09/26/19 04:59 82 98 09/26/19 04:54 84 98 09/26/19 04:49 100 H 99 09/26/19 04:46 90 185/114 09/26/19 04:44 80 98 09/26/19 04:39 82 98 09/26/19 04:34 84 98 09/26/19 04:29 84 99 09/26/19 04:24 85 98 09/26/19 04:19 85 99 02 04:16 85 185/85 02 04:14 85 98 09/26/19 04:09 85 98 09/26/19 04:04 90 99 09/26/19 03:59 83 98 09/26/19 03:54 86 99 09/26/19 03:49 89 98 09/26/19 03:45 86 139/81 09/26/19 03:44 90 98 09/26/19 03:39 84 99 09/26/19 03:34 86 99 09/26/19 03:31 98.3 F 18 09/26/19 03:29 89 98 09/26/19 03:24 84 98 09/26/19 03:19 90 98 09/26/19 03:15 87 128/60 09/26/19 03:14 85 98 09/26/19 03:09 84 98 09/26/19 03:04 84 97 09/26/19 02:59 85 98 09/26/19 02:54 86 98 09/26/19 02:49 90 98 09/26/19 02:45 86 130/64 09/26/19 02:44 86 98 09/26/19 02:39 86 98 09/26/19 02:34 85 97 09/26/19 02:29 84 98 09/26/19 02:24 87 98 09/26/19 02:19 85 97 09/26/19 02:15 85 116/59 09/26/19 02:14 85 97 09/26/19 02:09 86 97 09/26/19 02:04 86 98 09/26/19 01:59 85 98 09/26/19 01:54 85 98 09/26/19 01:49 84 97 09/26/19 01:45 83 127/60 09/26/19 01:44 84 98 09/26/19 01:39 85 98 09/26/19 01:34 86 98 09/26/19 01:29 85 98 09/26/19 01:24 84 97 09/26/19 01:19 85 97 09/26/19 01:15 86 116/59 09/26/19 01:14 86 97 03 01:09 86 97 09/26/19 01:04 86 97 09/26/19 00:59 84 97 09/26/19 00:54 84 98 09/26/19 00:49 85 99 09/26/19 00:45 85 124/68 09/26/19 00:44 85 98 09/26/19 00:39 85 97 09/26/19 00:34 85 98 09/26/19 00:29 85 98 09/26/19 00:24 83 98 09/26/19 00:19 84 98 09/26/19 00:15 84 115/59 09/26/19 00:14 85 98 09/26/19 00:09 86 98 09/26/19 00:04 86 98 09/25/19 23:59 85 98 09/25/19 23:54 84 99 09/25/19 23:49 82 98 09/25/19 23:45 84 119/61 09/25/19 23:44 86 98 09/25/19 23:39 86 99 09/25/19 23:34 84 98 09/25/19 23:29 86 98 09/25/19 23:24 92 H 99 09/25/19 23:19 98 H 100 09/25/19 23:15 83 137/73 09/25/19 23:14 86 100 09/25/19 23:09 86 100 09/25/19 23:04 84 100 09/25/19 22:59 84 100 09/25/19 22:54 86 100 09/25/19 22:49 85 100 09/25/19 22:45 84 142/72 09/25/19 22:44 85 100 09/25/19 22:39 83 100 09/25/19 22:34 83 100 09/25/19 22:29 84 100 09/25/19 22:24 82 100 09/25/19 22:19 86 100 09/25/19 22:15 86 151/86 09/25/19 22:14 88 100 09/25/19 22:09 84 100 09/25/19 22:04 98 H 100 09/25/19 21:59 83 100 09/25/19 21:54 83 100 02 21:49 81 100 02 21:45 81 154/82 09/25/19 21:44 82 100 09/25/19 21:39 85 100 09/25/19 21:34 82 100 02 21:29 85 100 02/10/13 21:24 84 100 09/25/19 21:20 88 75 L 09/25/19 21:19 84 100 09/25/19 21:15 82 152/86 02 21:14 80 100 09/25/19 21:11 81 149/80 02 21:09 85 18 149/80 100 02 21:04 80 100 09/25/19 20:59 80 99 09/25/19 20:54 83 99 09/25/19 20:49 82 100 09/25/19 20:45 98.0 F 82 18 140/78 140/78 100 09/25/19 20:44 85 99 09/25/19 20:39 81 99 09/25/19 20:34 83 100 09/25/19 20:29 85 99 09/25/19 20:24 83 99 09/25/19 20:19 84 99 09/25/19 20:14 86 98 09/25/19 20:12 81 142/79 09/25/19 20:09 86 146/84 99 09/25/19 20:06 88 146/77 09/25/19 20:04 88 89 09/25/19 20:00 88 106/63 09/25/19 19:56 82 109/59 20 19:53 82 108/60 09/25/19 19:50 82 108/60 20 19:47 86 109/61 20 19:44 81 111/61 /20 19:41 82 112/62 09/25/19 19:39 81 111/61 /20 19:36 84 109/58 90 20 19:35 83 100 /20 19:33 82 111/61 /20 19:30 81 108/58 100 20 19:26 88 108/60 20 19:25 82 100 /20 19:24 83 105/63 20 19:20 86 103/59 100 /20 19:17 83 101/58 02/20 19:15 83 101/58 99 /10/13 19:11 82 104/55 02/0220 19:10 84 100 02/0220 19:09 82 104/59 02/0220 19:05 82 103/56 100 02/20 19:02 83 102/58 02/20 19:00 82 100 02/0220 18:59 82 103/59 02/20 18:56 80 102/59 02/02/20 18:55 80 99 02/0220 18:54 77 101/58 02/0220 18:50 81 107/58 99 02/0220 18:47 84 104/59 02/20 18:45 85 102/57 98 02/0220 18:41 83 105/56 02/20 18:40 84 98 02/20 18:38 82 101/57 02/20 18:35 83 99/55 100 /10/13 18:32 83 97/54 02/20 18:30 84 100 02/20 18:29 83 95/53 02/0220 18:26 83 92/53 02/0220 18:25 81 100 02/20 18:23 82 96/54 02/0220 18:21 83 96/53 02/0220 18:18 78 105/56 02/20 18:15 79 78/45 02/20 18:12 83 99/63 02/20 18:09 83 111/58 02/20 18:06 83 115/56 02/20 18:04 82 116/61 02/0220 18:03 81 115/72 02/20 18:02 80 99 02/20 17:57 81 124/68 98 02/0220 17:54 80 118/65 02/0220 17:52 80 97 02/0220 17:51 81 112/67 02/0220 17:48 80 139/83 02/0220 17:47 84 96 /20 17:46 77 94 02/20 17:45 77 139/84 02/0220 17:42 66 105/57 98 /0220 17:39 74 113/59 02/0220 17:37 80 99 /10/13 17:36 88 146/77 02/02/20 17:33 87 157/86 0220 17:32 92 H 99 02/20 17:27 93 H 162/93 99 02/20 17:22 89 99 02/10/13 17:17 93 H 99 02/20 17:12 86 98 02/10/13 17:07 86 99 02/10/13 17:02 89 97 02/10/13 16:57 88 98 02 16:56 90 141/79 02 16:52 90 97 02/20 16:47 93 H 98 02 16:42 103 H 100 09/25/19 16:37 96 H 98 09/25/19 16:32 94 H 99 09/25/19 16:27 95 H 168/94 100 02 16:22 96 H 100 09/25/19 16:17 91 H 99 /10/13 16:12 89 98 02 16:07 91 H 98 09/25/19 16:02 92 H 99 09/25/19 15:57 90 99 02 15:56 85 133/70 02/10/13 15:52 87 99 0220 15:47 85 98 02/10/13 15:42 88 98 09/25/19 15:37 87 99 09/25/19 15:32 93 H 98 09/25/19 15:27 88 172/95 99 02 15:22 85 99 /10/13 15:17 90 99 /10/13 15:12 88 99 09/25/19 15:07 85 99 02 15:02 86 99 02 14:57 88 165/91 98 02/10/13 14:52 88 99 020220 14:47 88 99 02 14:42 87 99 09/25/19 14:37 91 H 98 09/25/19 14:32 85 99 02 14:27 94 H 159/90 99 09/25/19 14:22 92 H 99 /10/13 14:17 98 H 98 09/25/19 14:12 88 99 09/25/19 14:07 97 H 99 09/25/19 14:02 84 98 02/10/13 13:57 84 98 09/25/19 13:56 90 150/85 09/25/19 13:52 81 99 09/25/19 13:47 85 98 09/25/19 13:42 85 98 09/25/19 13:37 86 98 09/25/19 13:32 85 98 09/25/19 13:27 84 152/79 98 09/25/19 13:21 86 98 09/25/19 13:16 85 98 09/25/19 13:11 84 98 09/25/19 13:06 82 98 09/25/19 13:01 82 98 09/25/19 12:56 86 146/82 97 09/25/19 12:51 84 98 09/25/19 12:46 85 98 09/25/19 12:41 89 98 09/25/19 12:36 87 98 09/25/19 12:31 87 98 09/25/19 12:28 86 141/75 09/25/19 12:26 88 98 09/25/19 12:21 90 99 09/25/19 12:16 87 98 09/25/19 12:11 88 98 09/25/19 12:06 86 98 09/25/19 12:01 86 97 09/25/19 11:57 85 144/75 09/25/19 11:56 92 H 97 09/25/19 11:51 85 98 09/25/19 11:46 86 97 09/25/19 11:41 84 97 09/25/19 11:36 86 97 09/25/19 11:31 86 97 09/25/19 11:26 85 139/74 97 09/25/19 11:24 87 93 09/25/19 11:21 87 97 09/25/19 11:16 87 98 09/25/19 11:11 85 98 09/25/19 11:06 90 98 Intake and Output 09/25/19 09/26/19 09/26/19 22:59 06:59 14:59 Intake Total 887.5 1000 Output Total 650 1900 1275 Balance 237.5 -900 -1275 Intake: IV 887.5 1000 Lactated Ringers 1,000 ml 887.5 1000 @ 125 mls/hr IV DIRECT ERIKA Rx#:[id number] Output: Urine 650 1900 1275 Indwelling Catheter 650 1900 1275 Other: Total, Output Amount 650 400 325 Estimated Blood Loss 100 - Exam Breasts: Present: deferred Abdomen: Present: normal appearance, soft Uterus: Present: normal, firm, fundal height below umbilicus Extremities: Present: normal - Labs Labs: Abnormal lab results 09/25/19 09/26/19 09/26/19 Range/Units 20:00 03:44 09:13 Hgb 9.7 L (10.1-14.3) gm/dl Hct 30.0 L (30.3-42.9) % Magnesium 4.50 H 4.50 H (1.7-2.3) mg/dL 09/26/19 Range/Units 09:13 Hgb (10.1-14.3) gm/dl Hct (30.3-42.9) % Magnesium 4.60 H (1.7-2.3) mg/dL Laboratory Tests 09/24/19 09/24/19 09/24/19 18:25 18:25 18:25 WBC 6.6 RBC 4.40 Hgb 9.5 L Hct 28.3 L MCV 64 L MCH 22 L MCHC 34 RDW 16.6 H Plt Count 221 Creatinine 0.6 L 0.6 L Estimated GFR > 60 Uric Acid 4.7 Magnesium AST 15 ALT 14 Lactate Dehydrogenase 200 H Amylase 73 Urine Color Urine Turbidity Urine pH Ur Specific [place] Urine Protein Urine Glucose (UA) Urine Ketones Urine Blood Urine Nitrite Urine Bilirubin Urine Urobilinogen Ur Leukocyte Esterase Urine WBC (Auto) Urine RBC (Auto) U Epithel Cells (Auto) Urine Mucus Urine Creatinine Urine Amylase Amylase/Creat Ratio 2.3 Blood Type Antibody Screen 09/24/19 09/24/19 09/24/19 19:40 Unknown Unknown WBC RBC Hgb Hct MCV MCH MCHC RDW Plt Count Creatinine Estimated GFR Uric Acid Magnesium AST ALT Lactate Dehydrogenase Amylase Urine Color Yellow Urine Turbidity Clear Urine pH 5.0 Ur Specific [place] 1.015 Urine Protein 100 mg/dl Urine Glucose (UA) Neg Urine Ketones Neg Urine Blood Neg Urine Nitrite Neg Urine Bilirubin Neg Urine Urobilinogen 2.0 Ur Leukocyte Esterase Tr Urine WBC (Auto) 2.0 Urine RBC (Auto) 3.0 U Epithel Cells (Auto) 6.0 Urine Mucus Few Urine Creatinine 176.2 H Urine Amylase 406 Amylase/Creat Ratio Blood Type O POSITIVE Antibody Screen Negative 09/25/19 09/25/19 09/25/19 04:27 09:59 20:00 WBC RBC Hgb Hct MCV MCH MCHC RDW Plt Count Creatinine Estimated GFR Uric Acid Magnesium 3.80 H 4.10 H 4.50 H AST ALT Lactate Dehydrogenase Amylase Urine Color Urine Turbidity Urine pH Ur Specific [place] Urine Protein Urine Glucose (UA) Urine Ketones Urine Blood Urine Nitrite Urine Bilirubin Urine Urobilinogen Ur Leukocyte Esterase Urine WBC (Auto) Urine RBC (Auto) U Epithel Cells (Auto) Urine Mucus Urine Creatinine Urine Amylase Amylase/Creat Ratio Blood Type Antibody Screen 09/26/19 09/26/19 09/26/19 03:44 09:13 09:13 WBC RBC Hgb 9.7 L Hct 30.0 L MCV MCH MCHC RDW Plt Count Creatinine Estimated GFR Uric Acid Magnesium 4.50 H 4.60 H AST ALT Lactate Dehydrogenase Amylase Urine Color Urine Turbidity Urine pH Ur Specific [place] Urine Protein Urine Glucose (UA) Urine Ketones Urine Blood Urine Nitrite Urine Bilirubin Urine Urobilinogen Ur Leukocyte Esterase Urine WBC (Auto) Urine RBC (Auto) U Epithel Cells (Auto) Urine Mucus Urine Creatinine Urine Amylase Amylase/Creat Ratio Blood Type Antibody Screen
[2019-09-26] MEDS: MAGNESIUM SULFATE 40GM/1000ML 40 GM/1,000 ML BAG IV SCH (14:31)
--- NOTE | 2019-09-26 19:16 | Post Anesthesia Evaluation ---
- Post Anesthesia Evaluation Patient Participated: Yes Airway Patent: Yes Stable Respiratory Function: Yes Nausea/Vomiting: No Temp > 96.8F: Yes Pain Manageable: Yes Adequeate Hydration: Yes Anesthesia Complications: No Block Receding Appropriately: Yes
[2019-09-27] MEDS: IBUPROFEN 600 MG TAB PO SCH (07:42)
--- NOTE | 2019-09-27 09:14 | Progress Note ---
Assessment and Plan - Patient Problems (1) 36 weeks gestation of Onset Date: 09/24/19 Current Visit: No Status: Resolved (2) AMA (advanced maternal age) multigravida 35+ Onset Date: 09/24/19 Current Visit: No Status: Chronic Qualifiers: Trimester: third trimester Qualified Code(s): O09.523 - Supervision of elderly multigravida, third trimester (3) Pre-eclampsia added to pre-existing hypertension Onset Date: 09/24/19 Current Visit: No Status: Chronic (4) (normal spontaneous vaginal delivery) Onset Date: 10/12/18 Current Visit: No Status: Resolved Plan to address problem: A: S/P - PPD #2 Doing well Preeclampsia - stable on Labetolol 200mg BID and Procardia XL 30mg QD P: May go home today Subjective - Subjective Date of service: 09/27/19 Principal diagnosis: s/p - PPD #2; Chronic hypertension with superimposed preeclampsia Interval history: Pt is feeling well without complaints. She denies headaches or blurred vision. Patient reports: appetite normal, voiding normally, pain well controlled, flatus, ambulating normally, no dizzy ambulation, no nauseated : doing well, in NICU Objective - Vital Signs Latest vital signs: Vital Signs Temp Pulse Resp BP BP Pulse Ox 09/27/19 04:59 98.7 F 85 20 133/64 96 09/27/19 01:13 98.5 F 94 H 18 117/65 96 09/26/19 21:45 85 145/94 09/26/19 21:40 98.5 F 85 18 145/94 99 09/26/19 18:42 97.4 F L 18 125/74 09/26/19 17:33 93 H 138/63 09/26/19 16:37 87 100 09/26/19 16:32 87 100 09/26/19 16:28 85 141/84 09/26/19 16:27 98.7 F 84 19 100 09/26/19 14:15 81 104/54 09/26/19 13:15 83 103/57 09/26/19 12:15 80 121/69 09/26/19 12:14 97.8 F 19 09/26/19 11:15 78 127/73 09/26/19 10:10 86 116/64 09/26/19 09:21 152/107 09/26/19 09:15 96 H 152/107 Intake and Output 09/26/19 09/27/19 09/27/19 22:59 06:59 14:59 Intake Total 120 960 Output Total 350 Balance -230 960 Intake: Oral 960 Intake, Free Water 120 Output: Urine 350 Indwelling Catheter 350 Other: Total, Intake Amount 720 Total, Output Amount 350 # Voids Void 1 1 # Bowel Movements 0 - Exam Breasts: Present: deferred Abdomen: Present: normal appearance, soft Uterus: Present: normal, firm, fundal height below umbilicus Extremities: Present: normal - Labs Labs: Abnormal lab results 09/26/19 09/26/19 09/26/19 Range/Units 09:13 09:13 15:29 Hgb 9.7 L (10.1-14.3) gm/dl Hct 30.0 L (30.3-42.9) % Magnesium 4.60 H 4.50 H (1.7-2.3) mg/dL
[2019-09-27] MEDS: DOCUSATE SODIUM 100 MG CAP PO SCH (10:28)
[2019-09-27] MEDS: PRENATAL VIT27-FE FUMARATE-FOLIC ACID VIT TAB PO SCH (10:28)
[2019-09-27] MEDS: NIFEdipine XL 30 MG TAB PO SCH (10:28)
[2019-09-27] MEDS: FERROUS SULFATE 325 MG TAB PO SCH (10:28)
--- NOTE | 2019-09-27 11:25 | Discharge Summary ---
Providers - Providers Date of Admission: 09/24/19 19:29 Date of discharge: 09/27/19 Attending physician: JULIETA BEATTY Primary care physician: ADULT NEUROPSYCHOLOGIST Hospitalization Reason for admission: induction of labor, IUP at term, other (IUP @ 36 1/7 weeks; Chronic Hypertension with Superimposed Preeclampsia) Delivery: Episiotomy: none Laceration: none Incision: normal Other procedures: none complications: none Discharge diagnosis: IUP at term delivered [place] baby: male Hospital course: Pt is a 39yo BF EDC 10/21/19; EGA 36 2/7 weeks who was seen at [facility] for evaluation of elevated BP's - 179/116 in Triage. She denied headaches or blurred vision, but has had limited care at [facility] - only 2 visits. She had Chronic hypertension, and had been non-compliant with her visits and her BP meds which were Procardia 30mg BID and Labetolol 200mg BID. records were available, and GBS was unknown. She received cervidil followed by pitocin and subsequently delivered a viable male infant. She received IV magnesium sulfate x 24hrs and BP's were controlled on Labetolol 200mg BID and Procardia XL 30mg QD. She was therefore discharged to home on PPD #2 in stable condition, and will follow up in the office in 1 week for BP check. Condition at discharge: Good Disposition: DC-01 TO HOME OR SELFCARE - Discharge Diagnoses (1) 36 weeks gestation of Status: Resolved (2) AMA (advanced maternal age) multigravida 35+ Status: Chronic Qualifiers: Trimester: third trimester Qualified Code(s): O09.523 - Supervision of elderly multigravida, third trimester (3) Pre-eclampsia added to pre-existing hypertension Status: Chronic (4) (normal spontaneous vaginal delivery) Status: Resolved Plan - Discharge Medications Prescriptions: Ferrous Sulfate [Feosol 325 MG tab] 325 mg PO BID #60 tablet labetaloL [Labetalol 200mg TAB] 200 mg PO BID #60 tablet Ibuprofen [Motrin 600 MG tab] 600 mg PO Q6H #30 tablet Vit-Fe Fumar-FA [ Vitamin] 1 each PO QDAY #30 tablet NIFEdipine XL [Procardia Xl] 30 mg PO QDAY #30 tablet - Provider Discharge Summary Activity: routine, no sex for 6 weeks, no heavy lifting 4 weeks, no strenuous exercise Diet: routine Instructions: routine Additional instructions: [] Smoking cessation referral if applicable(refer to patient education folder for contact #) [] Refer to [facility]'s [facility] Booklet Call your doctor immediately for: * Fever > 100.5 * Heavy vaginal bleeding ( >1 pad per hour) * Severe persistent headache * Shortness of breath * Reddened, hot, painful area to leg or breast * Drainage or odor from incision. * Keep incision clean and dry at all times and follow doctor's instructions regarding bathing/showering Follow up in the office in 1 week for BP check - Follow up plan Follow up: PRIMARY CARE, [Primary Care Provider] - 7 Days JULIETA BEATTY MD [Staff Physician] - 7 Days JARRETT VELEZ NP [Referring] - 7 Days
[2019-09-27 13:33] VITALS: BP 133/74
== END 2019-09-27 16:59 | disposition home or self-care (01) | DRG 775 ==
LOC: TRG 16:43 → LD 19:29 → OB 09-26 18:52
PROVIDERS: ADMIT Obstetrics & Gynecology; ATTEND Obstetrics & Gynecology
PROC: 10E0XZZ Delivery of Products of Conception, External Approach (ICD-10-PCS; principal; 2019-09-25)
PROC: 3E0R3BZ Introduction of Anesthetic Agent into Spinal Canal, Percutaneous Approach (ICD-10-PCS; 2019-09-25)
PROC: 00HU33Z Insertion of Infusion Device into Spinal Canal, Percutaneous Approach (ICD-10-PCS; 2019-09-25)
PROC: 3E0P7VZ Introduction of Hormone into Female Reproductive, Via Natural or Artificial Opening (ICD-10-PCS; 2019-09-25)
PROC: 3E0234Z Introduction of Serum, Toxoid and Vaccine into Muscle, Percutaneous Approach (ICD-10-PCS; 2019-09-26)
PROC: 3E0134Z Introduction of Serum, Toxoid and Vaccine into Subcutaneous Tissue, Percutaneous Approach (ICD-10-PCS; 2019-09-26)
DX: O11.4 Pre-existing hypertension with pre-eclampsia, complicating childbirth (principal); O60.14X0 Preterm labor third trimester with preterm delivery third trimester, not applicable or unspecified; O99.214 Obesity complicating childbirth; E66.01 Morbid (severe) obesity due to excess calories; Z37.0 Single live birth; Z3A.36 36 weeks gestation of pregnancy; Z23 Encounter for immunization; Z79.899 Other long term (current) drug therapy
CPT/HCPCS: 36415; 59200; 81001; 82150; 82565; 82570; 83615; 83735; 84450; 84460; 84550; 85014; 85018; 85027; 86850; 86900; 86901; 88307; G0378; J0290; J0360; J0595; J2590; J3010; J3475; J3490; J7120